=== PATIENT | female | born 1945 | race Caucasian/White ===

== ENCOUNTER 2017-06-09 06:18 | Day surgery (SDC) | payer MEDICARE ==
[2017-06-08 09:06] VITALS: BMI 20.6
[2017-06-09 07:31] LABS: Hematocrit 33.2 % (36.0-47.0); Mean Platelet Volume 6.9 fL (7.4-10.4); Red Blood Cell (RBC) Count 3.51 mill/uL (4.20-5.40); White Blood Cell (WBC) Count 4.4 thou/uL (4.8-10.8)
[2017-06-09] MEDS ORDERED: Propofol 1,000 MG/100 ML VIAL IV ONE (07:33)
[2017-06-09 07:36] LABS: PTT 40.9 SEC (22.9-36.1)
[2017-06-09 07:50] LABS: Anion Gap 13 mmol/L (10-20); BUN (Urea Nitrogen) 17 mg/dL (9.8-20.1); Calc. Creatinine Clearance 39 mL/min (70-130); Calcium 9.5 mg/dL (7.8-10.44); Carbon Dioxide 27 mmol/L (23-31); Chloride 103 mmol/L (98-107); Estimated GFR-MDRD 48
[2017-06-09] MEDS ORDERED: Propofol 200 MG/20 ML VIAL ONE (08:57)
--- NOTE | 2017-06-09 09:24 | OP ---
DATE OF PROCEDURE: 06/09/2017 REFERRING PHYSICIAN: Dr. Yaw Aguilar. Ms. Jimenez is a 72-year-old female with prior history of persistent atrial fibrillation and pulmonar y venous isolation procedure in 04/19/[address] Chavarria. She has been on Xarelto and amiodarone ev er since. She has a recurrent atypical atrial flutter here for cardioversion. She has not interrup abdelrahman her anticoagulation. PROCEDURE: The patient received propofol as per Anesthesia specialist. After adequate level of sed ation achieved, a synchronized 70 joule shock promptly converted the patient back to sinus rhythm. CONCLUSION: Successful cardioversion. PLAN: Continue anticoagulation, amiodarone, routine followup in the office.
== END 2017-06-09 10:57 | disposition home or self-care (01) ==
LOC: CCL 06:18
PROVIDERS: ATTEND Internal Medicine Cardiovascular Disease
DX: I48.4 Atypical atrial flutter (principal); I48.1 Persistent atrial fibrillation; I11.9 Hypertensive heart disease without heart failure; K21.9 Gastro-esophageal reflux disease without esophagitis; M19.90 Unspecified osteoarthritis, unspecified site; Z79.01 Long term (current) use of anticoagulants; Z79.899 Other long term (current) drug therapy; Z91.041 Radiographic dye allergy status; Z90.710 Acquired absence of both cervix and uterus; Z98.890 Other specified postprocedural states; Z87.891 Personal history of nicotine dependence; Z87.01 Personal history of pneumonia (recurrent); Z82.49 Family history of ischemic heart disease and other diseases of the circulatory system
CPT/HCPCS: 80048; 85027; 85610; 85730; 92960; 93005; 93010; J2704

== ENCOUNTER 2018-07-02 18:53 | Inpatient (IN) | payer MEDICARE ==
[2018-07-02] MEDS ORDERED: Midazolam HCl 5 mg/ml Vial ONE (19:22)
[2018-07-02 19:28] LABS: #Basophils 0.1 thou/uL (0.0-0.2); #Eosinphils 0.3 thou/uL (0.0-0.7); #Lymphocytes 2.4 thou/uL (1.20-3.40); #Monocytes 0.7 thou/uL (0.11-0.59); %Eosinophils 3.4 % (0.0-10.0); %Lymphocytes 31.9 % (21.0-51.0); %Monocytes 9.9 % (0.0-10.0); %Neutrophils 53.8 % (42.0-75.0); Hemoglobin 13.6 g/dL (12.0-16.0); Mean Corpuscular HGB CONC 33.3 g/dL (32.0-36.0); Mean Corpuscular Hemoglobin 30.1 pg (27.0-31.0); Mean Corpuscular Volume 90.5 fL (78.0-98.0); Mean Platelet Volume 6.9 fL (7.4-10.4); Platelet Count 321 thou/uL (130-400); RBC Distribution Width 11.4 % (11.5-14.5); White Blood Cell (WBC) Count 7.5 thou/uL (4.8-10.8)
[2018-07-02] MEDS ORDERED: Magnesium 2 GM/50 ML BAG (IN WATER) ONE (19:29)
[2018-07-02] MEDS ORDERED: Amiodarone HCl 150 MG, Admixture Fee 1 EACH in Dextrose 5% in Water 100 ML IVPB SCH (19:30)
[2018-07-02] MEDS ORDERED: Amiodarone HCl 450 MG, Admixture Fee 1 EACH in Dextrose 5% in Water 250 ML IVPB SCH (19:30)
[2018-07-02 19:35] LABS: INR-International Normal Ratio 1.1; PTT 27.4 SEC (22.9-36.1); Prothrombin Time 14.3 SEC (12.0-14.7)
[2018-07-02 19:43] LABS: ALT (SGPT) 13 U/L (8-55); AST (SGOT) 15 U/L (5-34); Albumin 4.2 g/dL (3.4-4.8); Alkaline Phosphatase 27 U/L (40-150); Anion Gap 13 mmol/L (10-20); BUN (Urea Nitrogen) 15 mg/dL (9.8-20.1); Calc. Creatinine Clearance 0 mL/min (70-130); Calcium 8.9 mg/dL (7.8-10.44); Carbon Dioxide 30 mmol/L (23-31); Chloride 102 mmol/L (98-107); Estimated GFR-MDRD 64; Globulin 2.6 g/dL (2.4-3.5); Glucose 101 mg/dL (83-110); Potassium 3.6 mmol/L (3.5-5.1); Protein, Total 6.8 g/dL (6.0-8.3); Sodium 141 mmol/L (136-145)
[2018-07-02 19:52] LABS: Troponin I 0.725 ng/mL (< 0.028)
--- NOTE | 2018-07-02 20:21 | RAD ---
CHEST ONE VIEW: INDICATIONS: History of SVT. COMPARISON: Prior study dated 05/15/2018. FINDINGS: There is stable cardiomegaly and chronic lung changes. No confluent air space opacity or pleural effusion is evident. Pacer pads overly the lower anterior chest wall, l imiting the exam. No acute osseous abnormality is evident. IMPRESSION: Stable cardiomegaly. POS: [facility]
[2018-07-02] MEDS ORDERED: Ondansetron ODT 4 MG TAB SL PRN (22:30)
[2018-07-02] MEDS ORDERED: Acetaminophen 325 MG TAB PO PRN (22:30)
[2018-07-02] MEDS ORDERED: Sodium Chloride 0.9% 1,000 ML IV SCH (22:30)
[2018-07-02] MEDS ORDERED: Ondansetron HCl/PF 4 MG/2 ML Vial IVP PRN (22:30)
[2018-07-02 23:05] VITALS: BMI 22.3
[2018-07-02 23:18] LABS: Troponin I 0.734 ng/mL (< 0.028)
[2018-07-03 01:59] LABS: Critical Call Chem Troponin I RESULT DECREASING; Troponin I 0.682 ng/mL (< 0.028)
[2018-07-03] MEDS ORDERED: Clopidogrel Bisulfate 300 MG TAB PO SCH (03:00)
[2018-07-03] MEDS ORDERED: Enoxaparin Sodium 60 MG/0.6 ML SYRINGE SC SCH (09:00)
[2018-07-03] MEDS: Carvedilol 6.25 MG TAB PO SCH ×2 (09:47→20:38)
[2018-07-03] MEDS: Diltiazem HCl SR 60 mg Capsule PO SCH ×2 (09:48→20:37)
[2018-07-03] MEDS: Clopidogrel Bisulfate 75 MG TAB PO SCH (09:48)
[2018-07-03] MEDS: Aspirin 81 mg Enteric Coated Tablet PO SCH (09:48)
--- NOTE | 2018-07-03 09:49 | HP ---
CHIEF COMPLAINT: Tachycardia and palpitations. HISTORY OF PRESENT ILLNESS: This is a 73-year-old female with past medical history of coronary artery disease, CHF, arrhythmia (atrial fibrillation) status post ablation, presenting with heart rate of 160s. Patient was transferred for evaluation of tachycardia, which started at 1000. Patient reports ablation 3 days ago at [facility] for atrial fibrillation. Patient states that at this time, she is feeling much better and she does not have any symptoms of palpitations in the heart. Patient before the whole event started, she was lying in her recliner and started feeling that her heart rate was racing and she checked her blood pressure and blood pressure was low. Patient stated that she was diaphoretic and she felt "sick to her stomach." Patient then called 911 to have the EMS come and pick her up. Patient states that upon arriving to the ED, her blood pressure that was checked during the time that she was in the ambulance was low. Of note, patient was given adenosine and Cardizem with results and convert from heart rate of 165 , sinus. REVIEW OF SYSTEMS: At this point, patient denies any headaches, nausea, vomiting, chest pain, abdominal pain, back pain. Positive for palpitations otherwise, as documented in the HPI. All other systems were reviewed and are negative. PAST MEDICAL HISTORY: Coronary artery disease, congestive heart failure, atrial fibrillation, hypertension. PAST SURGICAL HISTORY: Status post cardiac ablation, hysterectomy. PSYCHIATRIC HISTORY: No psych history. SOCIAL HISTORY: Patient denies any illicit drug use. Patient denies any smoking history. Patient denies any alcohol use. Patient lives at home with family. FAMILY HISTORY: Reviewed and noncontributory. KNOWN ALLERGIES: IODINATED CONTRAST. CURRENT MEDICATIONS: Patient is pantoprazole, Xarelto 15 mg, Carafate 1 gram, diltiazem 60 mg b.i.d., Lasix 40 mg, potassium chloride 20 mEq orally. PHYSICAL EXAMINATION: VITAL SIGNS: Blood pressure is 103/87, pulse of 145, respiratory rate of 18, temperature of 98.5, O2 sat at 97 on room air. GENERAL: Patient is lying in bed comfortably, does not appear to be in any distress. Patient is speaking in full sentences, alert and oriented x3. HEENT: Normocephalic, atraumatic. Pupils are equally round and react to light. Extraocular movements are intact. No scleral icterus. No JVDs. Trachea is midline. NECK: Supple, full range of motion. Mucous membranes are moist. LUNGS: Clear to auscultation bilaterally. No wheezing, no rales, no rhonchi is appreciated. CARDIAC: Positive S1, S2. Irregularly irregular. No murmurs appreciated. ABDOMEN: Soft, nontender, nondistended. : Patient has a Faria in place, draining yellow urine. EXTREMITIES: 5/5 upper extremity strength, 5/5 lower extremity strength. Patient has good pulses bilaterally at the upper and lower extremities. NEUROLOGIC: Cranial nerves II through XII grossly intact. No neurologic deficits noted. SKIN: Warm, dry, and intact. PSYCH: Normal affect. IMAGING: A 12-lead EKG interpretation shows SVTs with occasional PACs. Chest x -ray negative for any acute cardiopulmonary process. Patient has positive cardiomegaly. ED COURSE: Patient received amiodarone IV, magnesium sulfate. Amiodarone was continued and patient also received normal saline. LABORATORY DATA: Patient WBCs are 7.5, hemoglobin is 13.6, hematocrit is 40.8, platelets 321. PT 14.3, INR is 1.8, PTT is 27.4. Sodium 141, potassium is 3.6 , chloride is 102, carbon dioxide of 30, anion gap of 13, BUN is 15, creatinine is 0.86. Magnesium is 2.0. AST is 15, ALT is 13, alkaline phosphatase is 27. Troponin is 0.725, 0.734, and patient's BNP is 347. TSH is 0.5220 ASSESSMENT AND PLAN: This is a 73-year-old female has been admitted for: 1. Palpitations. At this point, patient has been found to have non-ST elevation myocardial infarction. Patient has two troponins and patient's troponin is 0.725, 0.735 on second set. Patient is not going to be started on aspirin, Plavix, beta bear. We will continue patient on her home dose of diltiazem. We will do Lovenox therapeutic. We have consulted Cardiology, we will follow up with their recommendations. We have ordered for an echo. 2. Coronary artery disease. We will continue to manage the patient. 3. History of hypertension. We will continue patient on blood pressure medications. We will monitor the patient closely. 4. Atrial fibrillation. Patient is going to be started on Lovenox therapeutic. We will hold off patient's home dose of Xarelto at this time. 5. History of congestive heart failure. At this point, we will hold off Lasix. We have Cardiology on case. We will follow up with their recommendations. 6. Deep venous thrombosis and gastrointestinal prophylaxis. MTDD
--- NOTE | 2018-07-03 14:18 | PDOC.PN ---
- Subjective Encounter Start Date: 07/03/18 Encounter Start Time: 14:16 Subjective: feels weak and tired.out of energy.easily winded -: palpitations on and off -: reports as taken off of lasix as an OP.denies CP.no dysuria - Objective Resuscitation Status: Resuscitation Status FULL:Full Resuscitation MAR Reviewed: Yes Vital Signs & Weight: Vital Signs (12 hours) Temp Pulse Resp BP BP Pulse Ox 07/03/18 11:17 69 20 130/60 99 07/03/18 09:47 141/68 H 07/03/18 07:37 98.1 F 80 18 141/68 H 99 07/03/18 03:05 98.4 F 71 12 124/59 L 97 Weight Weight 137 lb I&O: 07/02/18 07/03/18 07/04/18 06:59 06:59 06:59 Intake Total 550 Balance 550 Result Diagrams: 07/02/18 19:20 07/02/18 19:20 Additional Labs: Laboratory Tests 05/15/18 07/02/18 07/02/18 20:55 19:20 22:38 Troponin I 0.015 0.725 H* 0.734 H* 07/03/18 01:23 Troponin I 0.682 H* EKG Reviewed by me: Yes (NSR on tele) Phys Exam - Physical Examination Constitutional: NAD HEENT: PERRLA, moist MMs, sclera anicteric, TM's clear, oral pharynx no lesions , 2+ tonsils Neck: no nodes, no JVD, supple, full ROM Respiratory: no wheezing, no rales, no rhonchi, clear to auscultation bilateral Cardiovascular: RRR, no significant murmur Gastrointestinal: soft, non-tender, no distention, positive bowel sounds Musculoskeletal: no edema, pulses present, edema present Neurological: non-focal, normal sensation, moves all 4 limbs Psychiatric: normal affect, A&O x 3 Skin: no rash Dx/Plan (1) NSTEMI (non-ST elevated myocardial infarction) Code(s): I21.4 - NON-ST ELEVATION (NSTEMI) MYOCARDIAL INFARCTION Status: Acute Comment: Nikko demand ischemia from A-fib w RVR. (2) Atrial fibrillation with RVR Code(s): I48.91 - UNSPECIFIED ATRIAL FIBRILLATION Status: Acute Comment: S/ P Ablation 2017,CV05/30 and ablation 06/29/18.On Xarelto as an OP (3) CKD (chronic kidney disease), stage III Code(s): N18.3 - CHRONIC KIDNEY DISEASE, STAGE 3 (MODERATE) Status: Chronic Comment: stable (4) GERD (gastroesophageal reflux disease) Code(s): K21.9 - GASTRO-ESOPHAGEAL REFLUX DISEASE WITHOUT ESOPHAGITIS Status: Chronic Qualifiers: Esophagitis presence: esophagitis presence not specified Qualified Code(s) : K21.9 - Gastro-esophageal reflux disease without esophagitis (5) Hyperlipidemia Code(s): E78.5 - HYPERLIPIDEMIA, UNSPECIFIED Status: Chronic Qualifiers: Hyperlipidemia type: unspecified Qualified Code(s): E78.5 - Hyperlipidemia , unspecified (6) Hypertension Code(s): I10 - ESSENTIAL (PRIMARY) HYPERTENSION Status: Chronic Qualifiers: Hypertension type: essential hypertension Qualified Code(s): I10 - Essential (primary) hypertension Comment: controlled and at goal (7) Non-ischemic cardiomyopathy Code(s): I42.8 - OTHER CARDIOMYOPATHIES Status: Chronic Comment: EF 30-35% - Plan out of bed/ambulate, DVT proph w/SCDs cont Lovenox BID.Xarelto on hold, -: cardiology and EP consult. -: check UA. pt reports adequate urination for now. -: cont plavix.cont BB &b amiodarone.HR in sinus for now -: repeat ECHO shows improved EF.HD stable.am labs * . Review of Systems - Review of Systems Constitutional: weakness, malaise. negative: fever, chills, sweats, other Respiratory: SOB with Excertion. negative: Cough, Dry, Shortness of Breath, Hemoptysis, Pleuritic Pain, Sputum, Wheezing Cardiovascular: palpitations. negative: chest pain, orthopnea, paroxysmal nocturnal dyspnea, edema, light headedness, other Gastrointestinal: negative: Nausea, Vomiting, Abdominal Pain, Diarrhea, Constipation, Melena, Hematochezia, Other Genitourinary: negative: Dysuria, Frequency, Incontinence, Hematuria, Retention , Other Musculoskeletal: negative: Neck Pain, Shoulder Pain, Arm Pain, Back Pain, Hand Pain, Leg Pain, Foot Pain, Other Skin: negative: Rash, Lesions, Geo, Bruising, Other Neurological: negative: Weakness, Numbness, Incoordination, Change in Speech, Confusion, Seizures, Other - Medications/Allergies Allergies/Adverse Reactions: Allergies Allergy/AdvReac Type Severity Reaction Status Date / Time Iodinated Contrast- Oral and Allergy Severe cardiac Verified 06/29/18 17:32 IV Dye arrest Medications: Current Medications Aspirin (Ecotrin) 81 mg PO DAILY [facility] Last Admin: 07/03/18 09:48 Dose: 81 mg Carvedilol (Coreg) 12.5 mg PO BID [facility] Last Admin: 07/03/18 09:47 Dose: 12.5 mg Clopidogrel Bisulfate (Plavix) 75 mg PO DAILY [facility] Last Admin: 07/03/18 09:48 Dose: 75 mg Diltiazem HCl (Cardizem Sr) 60 mg PO BID [facility] Last Admin: 07/03/18 09:48 Dose: 60 mg Enoxaparin Sodium (Lovenox) 60 mg SC 0900,2100 [facility] Last Admin: 07/03/18 09:47 Dose: 60 mg Sodium Chloride (Flush - Normal Saline) 10 ml IVF Q12HR [facility] Last Admin: 07/03/18 09:47 Dose: 10 ml Sodium Chloride (Flush - Normal Saline) 10 ml IVF PRN PRN PRN Reason: Saline Flush
[2018-07-03] MEDS: Rivaroxaban 10 MG TAB PO SCH (17:29)
[2018-07-03 19:35] LABS: Bilirubin Negative (Negative); Blood, Urine Negative (Negative); Clarity CLEAR (Clear); Glucose, Urine (Dipstick) Negative (Negative); Leukocyte Moderate (Negative); Nitrite Negative (Negative); Protein, Urine (Dipstick) Negative (Neg-Trace); Specific Gravity, Urine 1.017 (1.002-1.036); pH, Urine 6.5 (5.0-9.0)
[2018-07-03 19:38] LABS: Bacteria/HPF Rare-Few HPF (None Seen); Hyaline Casts/LPF 0-3 HYALINE CAST LPF (0-3 Hyaline); RBC/HPF 0-3 HPF (0-3); Squamous Epithelial 0-3 HPF (0-3)
[2018-07-03] MEDS: Amiodarone 200 MG TAB PO SCH (20:38)
[2018-07-04 06:15] LABS: #Basophils 0.1 thou/uL (0.0-0.2); #Eosinphils 0.6 thou/uL (0.0-0.7); #Lymphocytes 1.9 thou/uL (1.20-3.40); #Monocytes 0.5 thou/uL (0.11-0.59); #Neutrophils 3.1 thou/uL (1.40-6.50); %Basophils 0.8 % (0.0-1.0); %Eosinophils 9.5 % (0.0-10.0); %Lymphocytes 31.1 % (21.0-51.0); %Monocytes 8.4 % (0.0-10.0); %Neutrophils 50.2 % (42.0-75.0); Hemoglobin 10.8 g/dL (12.0-16.0); Mean Corpuscular HGB CONC 32.3 g/dL (32.0-36.0); Mean Corpuscular Hemoglobin 29.4 pg (27.0-31.0); Mean Corpuscular Volume 90.8 fL (78.0-98.0); Mean Platelet Volume 6.6 fL (7.4-10.4); Platelet Count 284 thou/uL (130-400); RBC Distribution Width 11.4 % (11.5-14.5); Red Blood Cell (RBC) Count 3.69 mill/uL (4.20-5.40); White Blood Cell (WBC) Count 6.1 thou/uL (4.8-10.8)
[2018-07-04 06:33] LABS: Anion Gap 11 mmol/L (10-20); BUN (Urea Nitrogen) 15 mg/dL (9.8-20.1); Calc. Creatinine Clearance 59 mL/min (70-130); Calcium 8.6 mg/dL (7.8-10.44); Carbon Dioxide 26 mmol/L (23-31); Chloride 105 mmol/L (98-107); Estimated GFR-MDRD 69; Glucose 94 mg/dL (83-110); Potassium 3.9 mmol/L (3.5-5.1); Sodium 138 mmol/L (136-145)
--- NOTE | 2018-07-04 07:19 | CON ---
DATE OF CONSULTATION: 07/03/2018 ELECTROPHYSIOLOGY CONSULTATION REPORT REFERRING PHYSICIAN: Dr. Yaw Aguilar I am seeing Mrs. Jimenez at our [facility] as Electrophysiology automation consultant. Her problems are: 1. Post-ablation atrial tachycardia. A. Good response to amiodarone. 2. History of persistent atrial fibrillation. A. Initial pulmonary venous isolation procedure on 04/19/2017. B. Recurrence of atrial fibrillation/flutter requiring chronic amiodarone therapy. C. Amiodarone stopped in January 2018, but later recurring atrial arrhythmias again noted. D. Afib supression with Tikosyn was attempted in the past, but did not respond well due to QT prolongation. E. Status post redo pulmonary venous isolation procedure on 06/28/[address] Rich. 3. Chronic systolic congestive heart failure with nonischemic cardiomyopathy. A. Left heart catheterization in 07/2010, normal coronary arteries. LVEF 40%. B. 2D echo from 07/2016 with LVEF 45%-50%, MR, left atrial enlargement. C. A 2D echo from 07/03/2018 reveals LVEF of 35%-40%. Left atrium moderately dilated. Severe mitral regurgitation, moderate to severe aortic regurgitation, moderate tricuspid regurgitation. LV dilation is seen. 4. Elevated [id number] score with age, gender, hypertension and CHF. 5. On chronic Xarelto therapy. 6. Risk factors including dyslipidemia and hypertension and smoking. ALLERGIES: ORAL AND IV DYE and IODINE. MEDICATIONS AT HOME: Included Xarelto 50 mg a day, carvedilol 12.5 mg 1 tablet twice a day, diltiazem 60 mg twice a day, pantoprazole 4 mg daily, sucralfate 1 gram q.i.d., potassium chloride 10 mEq daily, furosemide 4 mg daily p.r.n. DATABASE: The EKGs reviewed revealing atrial tachycardia with variable AV conduction on presentation with ventricular rates at 160 beats per minute. Subsequently EKGs reveal continued atrial tachycardia, but eventually reversal to sinus rhythm is noted on telemetry strips, currently maintaining sinus rhythm. The patient had significant palpitation with these episodes. She had no loss of consciousness. No fever, chills, or cough. She has also felt somewhat thick to the stomach and somewhat diaphoretic eventually and all these symptoms resolved with rate control. She did receive adenosine and Cardizem. Currently, she has no PND, orthopnea, lower extremity edema. No fever, chills, or cough. No dizziness anymore. Rest of 12-point system unremarkable. PAST HISTORY: As above. SOCIAL HISTORY: Patient denies smoking, ETOH or drug abuse. Lives at home with family. FAMILY HISTORY: Noncontributory. OBJECTIVE: VITAL SIGNS: Blood pressure is 130/60, heart rate 69, respiratory rate 20, temperature 98.1 degrees Fahrenheit. GENERAL: Alert and oriented woman in no apparent distress. NECK: Supple. Jugular veins not distended. CHEST: Coarse without crackles. CARDIOVASCULAR: Heart sounds are regular to rate and rhythm. No murmur or gallop. ABDOMEN: Benign. Bowel sounds positive. EXTREMITIES: Lower extremities without edema, clubbing or cyanosis. Pulses are adequate. NEUROLOGIC: Patient nonfocal. MUSCULOSKELETAL: No joint swelling or deformities. SKIN: Without rash. EKGs as above. LABORATORY DATA: The sodium is 141, potassium 3.6, BUN is 15, creatinine 0.86. Troponin levels are 0.725, 0.734, and 0.682. BNP still at 347 on presentation. TSH is 0.5 to the lab data. ASSESSMENT AND PLAN: Ms. Jimenez is a pleasant 73-year-old woman with prior history of atrial arrhythmias, atrial fibrillation. She also has nonischemic cardiomyopathy, currently with moderate reduced LV function. She is here with recurrent atrial arrhythmias 3-4 days after her ablation. ASSESSMENT AND PLAN. 1. Currently, her rhythm is normal as well as I suspect this may recur. At this point it would be reasonable to restart p.o. amiodarone reloading. We will continue to monitor her and likely wean her off in about 3 months post- ablation. 2. The [id number] score 5, continues on Xarelto. I would increase the dose to 420 mg, hence today for values, her creatinine clearance is 55 mL per minute. Once that number decreased based on 50, she likely will need to reduce her Xarelto to 50 mg. 3. Status post left atrial ablation procedure. Good recovery without any significant complications so far. 4. Cardiomyopathy, heart failure therapy is recommended including judicious use of diuretics as per Dr. Aguilar. 5. Elevated troponins, likely is none related to marked ischemia, but to the recent ablation. 6. Amiodarone use, warned her about potential long-term side effect. Hence, she responded poorly on Tikosyn, I think that is the only reasonable choice at this time. We will follow with you. MTDD
[2018-07-04] MEDS: Amiodarone 200 MG TAB PO SCH ×3 (09:17→19:59)
[2018-07-04] MEDS: Carvedilol 6.25 MG TAB PO SCH ×2 (09:17→19:59)
[2018-07-04] MEDS: Clopidogrel Bisulfate 75 MG TAB PO SCH (09:17)
[2018-07-04] MEDS: Diltiazem HCl SR 60 mg Capsule PO SCH ×2 (09:17→20:00)
[2018-07-04] MEDS: Aspirin 81 mg Enteric Coated Tablet PO SCH (09:17)
[2018-07-04] MEDS ORDERED: Acetaminophen 500 MG TAB PO PRN (09:18)
[2018-07-04] MEDS ORDERED: Benzonatate 100 MG CAP PO PRN (09:18)
[2018-07-04] MEDS ORDERED: cloNIDine 0.1 MG TAB PO PRN (09:18)
[2018-07-04] MEDS ORDERED: Diabetic Tussin 200 MG/10 ML UDCUP PO PRN (09:18)
[2018-07-04] MEDS ORDERED: Ondansetron HCl/PF 4 MG/2 ML Vial IVP PRN (09:18)
[2018-07-04] MEDS ORDERED: hydrALAZINE 20 MG/ML VIAL SLOW IVP PRN (09:18)
[2018-07-04] MEDS ORDERED: Senokot S 8.6-50 MG TAB PO PRN (09:18)
[2018-07-04] MEDS ORDERED: Bisacodyl 5 MG TAB PO PRN (09:18)
[2018-07-04] MEDS ORDERED: Nitroglycerin 0.4 MG TAB (25 Tab Bottle) SL PRN (09:18)
--- NOTE | 2018-07-04 11:06 | PQF ---
JOSH MENDENHALL RICHA MD [id number] CLINICAL DOCUMENTATION IMPROVEMENT CLARIFICATION FORM: ICD-10 Updated PLEASE DO AN ADDENDUM TO THE PROGRESS NOTE WITH ANY DOCUMENTATION UPDATES OR ADDITIONS AND CARRY THROUGH TO DC SUMMARY. THANK YOU. DATE: 07/04/18 ATTN: DR. HEAD Please exercise your independent, professional judgment in responding to the clarification form. Clinical indicators are provided on the bottom of this form for your review Please check appropriate box(s) to clarify if the following diagnosis has been ruled in or ruled out: NSTEMI____X. (CDI/Coding list diagnosis here) [ ] Ruled in diagnosis [ ] Continue to treat [ X ] Resolved [ ] Ruled out diagnosis [ ] Cannot rule out diagnosis [ ] Other diagnosis [ ] Unable to determine In addition, please specify: Present on Admission (POA): [ X ] Yes [ ] No [ ] Unable to determine For continuity of documentation, please document condition throughout progress notes and discharge summary. Thank You. CLINICAL INDICATORS - SIGNS / SYMPTOMS / LABS NSTEMI H&P 07/03 IM: NSTEMI LIKELY FROM DEMAND ISCHEMIA FROM AFIB RVR TROP 0.725, 0.734, 0.682 PER LABS ON ADMIT 07/03 CARD: ELEVATED TROPONINS, LIKELY IS NONE RELATED TO MARKED ISCHEMIA, BUT TO RECENT ABLATION RISK FACTORS H&P: AFIB RVR, HTN, CKD3 07/03 CARD: CHRONIC SYSTOLIC HF, ICMP S/P ABLATION 06/29 TREATMENTS SERIAL CARDIAC ENZYMES 07/02 ORDERS CARDIOLOGY CONSULT 07/03 ORDERS ECHO 07/03 ORDERS THANK YOU, MINDY (This form is maintained as a part of the permanent medical record) 2014 [employer]. All Rights Reserved Mindy Lane RN, BSN, CCDS [email or web address]
[2018-07-04] MEDS: Sucralfate 1 GM TAB PO SCH ×3 (13:46→20:03)
--- NOTE | 2018-07-04 13:46 | PDOC.CTH ---
Cardiology Progress Note - Subjective EP progress note: Seen and evaluated. No new cardiac concerns or complaints. Doing well today. No heart racing, palpitations, chest pain/pressure, dizziness, or passing out - Objective Vital Signs Temp Pulse Resp BP BP BP Pulse Ox 07/04/18 11:10 70 18 127/59 L 97 07/04/18 09:17 142/71 H 07/04/18 07:15 98.2 F 72 16 142/71 H 100 07/04/18 02:55 98.3 F 65 17 126/59 L 98 Weight 138 lb 11.2 oz 07/03/18 07/04/18 07/05/18 06:59 06:59 06:59 Intake Total 550 1200 Output Total 1050 Balance 550 150 - Physical Examination General/Neuro: alert & oriented x3, NAD Neck: carotid US brisk, no JVD present Lungs: CTA, unlabored respirations Heart: PMI normal, RRR Abdomen: NT/ND, soft - Telemetry Telemetry Rhythm: SR - Labs Result Diagrams: 07/04/18 05:25 07/04/18 05:25 Troponin/CKMB CK-MB (CK-2) 2.0 ng/mL (0-6.6) 07/02/18 19:20 Troponin I 0.682 ng/mL (< 0.028) H* 07/03/18 01:23 - Assessment/Plan 1. Persistent atrial arrhythmias s/p recent redo RFA on 06/28/18 with Al-Ahmad. Now in sinus rhythm but had demonstrated early recurrence. Short term Amiodarone initiated. Continue taper of 200mg TID x 1 week, 200mg BID x 1 week, then 200mg daily thereafter. Hope to wean off 3 monts post ablation. Failed Tikosyn in the past. 2. CHADS2-VASC: 5, on Xarelto. Continue without interruption post ablation 3. Cardiomyopathy, per Dr. Aguilar 4. Elevated troponins, secondary to recent ablation 5. Renal insufficiency. Creat clearance 55mL/min. If </=50, will need to lower Xarelto to 15mg QPM Continue Amiodarone and Xarelto.
[2018-07-04] MEDS ORDERED: Mag-Al Plus 1200 MG/1200 MG/120 MG/30 ML UDCUP PO PRN (15:24)
[2018-07-04] MEDS: Rivaroxaban 10 MG TAB PO SCH (17:55)
--- NOTE | 2018-07-04 23:26 | DIS ---
DATE OF ADMISSION: 07/02/2018 DATE OF DISCHARGE: 07/04/2018 CONDITION AT THE TIME OF DISCHARGE: Stable and improved. PRIMARY CARE PHYSICIAN: Aleshia Rosario M.D. DISCHARGE DIAGNOSES: 1. Non-ST elevation myocardial infarction. 2. Recurrent atrial fibrillation with rapid ventricular response. 3. Chronic kidney disease. 4. Gastroesophageal reflux disease. 5. Dyslipidemia. 6. Hypertension. 7. Nonischemic cardiomyopathy with ejection fraction of 35%-40%. INHOUSE CONSULTATION: Yaw Aguilar M.D. ELECTROPHYSIOLOGY: Antonio Silverio M.D. DISCHARGE MEDICATIONS: Amiodarone dose has been increased to 200 mg t.i.d. for 1 week, then 200 mg p .o. b.i.d. for 1 week, then 200 mg daily; Xarelto dose has been increased from 15 to 20 mg daily. Re sume home medications, Carafate 1 gram q.i.d., Protonix 40 mg daily, potassium chloride 20 mEq daily p.r.n., Lasix 40 mg daily p.r.n., diltiazem 60 mg p.o. b.i.d., and carvedilol 12.5 mg p.o. b.i.d. PROCEDURES DONE IN THE HOSPITAL: Transthoracic echocardiogram which shows EF of 35%-40% with severe mitral regurgitation as well as moderate to severe aortic regurgitation and moderate tricuspid regurg itation. HISTORY OF PRESENTING ILLNESS: Ms. Jimenez is a very pleasant 73-year-old female with known history o f atrial fibrillation, status post cardioversion and ablation as an outpatient who presented to the e mergency room with complaints of tachycardia and palpitations. She had a recent ablation [address] Silverio at [facility]. Upon presentation, she was diaphoretic and at home her blood pre ssure was low. Upon presentation, she was found to have troponin elevation at 0.725 and 0.735 on sec ond set. She was started on aspirin, Plavix, and beta bear by the admitting physician as well as b.i.d. dose of Lovenox and Cardiology was consulted. She was given IV amiodarone and magnesium sulfa te in the emergency room for SVTs and occasional PACs. Please see admission history and physical for further detail. Xarelto was held as Lovenox was started. HOSPITAL COURSE: The patient was seen by Cardiology and Electrophysiology. Dr. Silverio recommended med ical management and her amiodarone dose as well as Xarelto dose was increased. She was taken off of Lovenox. No further ablation was planned inhouse and the patient had no reoccurrence of arrhythmia. She remained in sinus rhythm. She was cleared by Cardiology and Electrophysiology for discharge and was eager to go home. Home health was set up for her. She will follow up with both Dr. Jeff cochran nd Dr. Silverio in the outpatient setting. PHYSICAL EXAMINATION: This morning include: VITAL SIGNS: Temperature 98.2, blood pressure 127/59, saturating 97% on room air, heart rate 70, no acute distress. CHEST: Clear to auscultation. HEART: Rate and rhythm regular. LABORATORY DATA: The troponin started to trend down with repeat troponin of 0.682. BNP 347. TSH nor mal. CBC, serum chemistries unremarkable. Total time spent in discharge of this patient 32 minutes.
[2018-07-05] MEDS: Sucralfate 1 GM TAB PO SCH ×3 (07:58→16:02)
[2018-07-05] MEDS: Clopidogrel Bisulfate 75 MG TAB PO SCH (07:58)
[2018-07-05] MEDS: Carvedilol 6.25 MG TAB PO SCH (07:58)
[2018-07-05] MEDS: Diltiazem HCl SR 60 mg Capsule PO SCH (07:58)
[2018-07-05] MEDS: Amiodarone 200 MG TAB PO SCH ×2 (07:59→15:17)
--- NOTE | 2018-07-05 09:48 | PRG ---
DATE OF SERVICE: 07/05/2018 SUBJECTIVE: Ms. Jimenez seems to be doing well. She was set to discharge yesterday, but developed a discomfort in the abdomen. It is improved today. OBJECTIVE: VITAL SIGNS: Blood pressure 144/65, heart rate 71, respiration is 18, temperature 98.8 degrees Fahrenheit. GENERAL: Alert and oriented woman in no apparent distress. NECK: Supple. Jugular veins not distended. CHEST: Coarse, no crackles. CARDIOVASCULAR: Heart sounds are regular to rate and rhythm. No murmur or gallop. ABDOMEN: Benign. Bowel sounds positive. EXTREMITIES: No edema, clubbing or cyanosis. DATABASE: The telemetry strips reviewed reveals sinus rhythm without significant ST-T changes. LABORATORY DATA: Troponin levels revealed decreasing trend from the and 0.7 and 0.682 consistent with recent ablation procedure related troponin leak. ASSESSMENT AND PLAN: 1. Ms. Jimenez is a pleasant 73-year-old woman with history of recurrent atrial arrhythmias. She underwent redo left atrial ablation pulmonary venous isolation procedure by Dr. Rich last week. She had recurrent atrial tachycardia and was readmitted. That spontaneously terminated, but we are loading her with amiodarone, which she has been able to tolerate in the past. 2. She had a mild troponin elevation without typical angina-like symptoms which was likely related to the ablation procedure last week, not not [place]. 3. Elevated CHADS-VASc score continued on anticoagulation with Xarelto, which has been increased to 20 mg due to good kidney function. 4. On diltiazem and carvedilol. At this point, we will stop diltiazem to allow for amiodarone taper. 5. Routine followup in the office requested in 6 weeks. ALIAD
--- NOTE | 2018-07-05 14:23 | PDOC.PN ---
- Subjective Encounter Start Date: 07/05/18 Encounter Start Time: 14:21 Subjective: still with some RUQ pain .no fever/chills.no N/V -: reports H/O gallstones - Objective Resuscitation Status: Resuscitation Status FULL:Full Resuscitation MAR Reviewed: Yes Vital Signs & Weight: Vital Signs (12 hours) Temp Pulse Resp BP BP Pulse Ox 07/05/18 12:10 99.5 F 68 18 126/59 L 98 07/05/18 07:49 98.8 F 71 18 144/65 H 99 07/05/18 04:00 98 F 66 16 133/62 97 Weight Weight 140 lb 12.8 oz I&O: 07/04/18 07/05/18 07/06/18 06:59 06:59 06:59 Intake Total 1200 300 Output Total 1050 1250 Balance 150 -950 Result Diagrams: 07/04/18 05:25 07/04/18 05:25 Additional Labs: Laboratory Tests 07/02/18 07/02/18 07/03/18 19:20 22:38 01:23 Troponin I 0.725 H* 0.734 H* 0.682 H* Phys Exam - Physical Examination Constitutional: NAD HEENT: PERRLA, moist MMs, sclera anicteric, oral pharynx no lesions Neck: no nodes, no JVD, supple, full ROM Respiratory: no wheezing, no rales, no rhonchi, clear to auscultation bilateral Cardiovascular: RRR, no significant murmur, no rub Gastrointestinal: soft, non-tender, no distention, positive bowel sounds Musculoskeletal: no edema, pulses present Neurological: non-focal, normal sensation, moves all 4 limbs Psychiatric: normal affect, A&O x 3 Skin: no rash, normal turgor, cap refill <2 seconds Dx/Plan (1) NSTEMI (non-ST elevated myocardial infarction) Code(s): I21.4 - NON-ST ELEVATION (NSTEMI) MYOCARDIAL INFARCTION Status: Acute Comment: Likley demand ischemia from A-fib w RVR. and recent ablation. NOT ACS (2) Atrial fibrillation with RVR Code(s): I48.91 - UNSPECIFIED ATRIAL FIBRILLATION Status: Acute Comment: S/ P Ablation 2016,CV05/30 and ablation 06/29/18.On Xarelto as an OP.NSR for now (3) CKD (chronic kidney disease), stage III Code(s): N18.3 - CHRONIC KIDNEY DISEASE, STAGE 3 (MODERATE) Status: Chronic Comment: stable (4) GERD (gastroesophageal reflux disease) Code(s): K21.9 - GASTRO-ESOPHAGEAL REFLUX DISEASE WITHOUT ESOPHAGITIS Status: Chronic Qualifiers: Esophagitis presence: esophagitis presence not specified Qualified Code(s) : K21.9 - Gastro-esophageal reflux disease without esophagitis (5) Hyperlipidemia Code(s): E78.5 - HYPERLIPIDEMIA, UNSPECIFIED Status: Chronic Qualifiers: Hyperlipidemia type: unspecified Qualified Code(s): E78.5 - Hyperlipidemia , unspecified (6) Hypertension Code(s): I10 - ESSENTIAL (PRIMARY) HYPERTENSION Status: Chronic Qualifiers: Hypertension type: essential hypertension Qualified Code(s): I10 - Essential (primary) hypertension Comment: controlled and at goal (7) Non-ischemic cardiomyopathy Code(s): I42.8 - OTHER CARDIOMYOPATHIES Status: Chronic Comment: EF 30-35% - Plan PT/OT, respiratory therapy, incentive spirometry, out of bed/ambulate, DVT proph w/SCDs check RUQ US.if no cholecystitis ,will DC home -: Discharged yesterday but didn't go d/t abd pain -: IF Gallstones,will refer OP for GS. will need cardiology clearance prior -: HD stable O/W. Stop CCB per Dt Nusrat,cont rest as below -: start PATTY-I given low EF,even though no NSTEMI/ACS this time * . Review of Systems - Review of Systems Constitutional: negative: fever, chills, sweats, weakness, malaise, other ENT: negative: Ear Pain, Ear Discharge, Nose Pain, Nose Discharge, Nose Congestion, Mouth Pain, Mouth Swelling, Throat Pain, Throat Swelling, Other Respiratory: negative: Cough, Dry, Shortness of Breath, Hemoptysis, SOB with Excertion, Pleuritic Pain, Sputum, Wheezing Cardiovascular: negative: chest pain, palpitations, orthopnea, paroxysmal nocturnal dyspnea, edema, light headedness, other Gastrointestinal: Abdominal Pain. negative: Nausea, Vomiting, Diarrhea, Constipation, Melena, Hematochezia, Other Genitourinary: negative: Dysuria, Frequency, Incontinence, Hematuria, Retention , Other Musculoskeletal: negative: Neck Pain, Shoulder Pain, Arm Pain, Back Pain, Hand Pain, Leg Pain, Foot Pain, Other Skin: negative: Rash, Lesions, Geo, Bruising, Other Neurological: negative: Weakness, Numbness, Incoordination, Change in Speech, Confusion, Seizures, Other - Medications/Allergies Allergies/Adverse Reactions: Allergies Allergy/AdvReac Type Severity Reaction Status Date / Time Iodinated Contrast- Oral and Allergy Severe cardiac Verified 06/29/18 17:32 IV Dye arrest Medications: Current Medications Acetaminophen (Tylenol) 1,000 mg PO Q6H PRN PRN Reason: Mild Pain (1-3) Al Hydroxide/Mg Hydroxide (Maalox Plus) 30 ml PO Q6H PRN PRN Reason: Heartburn or Indigestion Last Admin: 07/04/18 16:10 Dose: 30 ml Amiodarone HCl (Cordarone) 200 mg PO TID [facility] Last Admin: 07/05/18 07:59 Dose: 200 mg Benzonatate (Tessalon) 100 mg PO Q6H PRN PRN Reason: Cough Bisacodyl (Dulcolax) 10 mg PO DAILYPRN PRN PRN Reason: Constipation Last Admin: 07/05/18 10:30 Dose: 10 mg Carvedilol (Coreg) 12.5 mg PO BID [facility] Last Admin: 07/05/18 07:58 Dose: 12.5 mg Clonidine (Catapres) 0.1 mg PO Q4H PRN PRN Reason: SBP > 160____ Clopidogrel Bisulfate (Plavix) 75 mg PO DAILY [facility] Last Admin: 07/05/18 07:58 Dose: 75 mg Guaifenesin (Robitussin Sf) 200 mg PO Q4H PRN PRN Reason: Cough Hydralazine HCl (Apresoline) 10 mg SLOW IVP Q4H PRN PRN Reason: SBP > 180 and HR < 70 Nitroglycerin (Nitrostat) 0.4 mg SL Q5MIN PRN PRN Reason: Chest Pain Ondansetron HCl (Zofran) 4 mg IVP Q6H PRN PRN Reason: Nausea/Vomiting Pantoprazole Sodium (Protonix) 40 mg PO DAILY [facility] Rivaroxaban (Xarelto) 20 mg PO 1800 [facility] Last Admin: 07/04/18 17:55 Dose: 20 mg Senna/Docusate Sodium (Senokot S) 2 tab PO BID PRN PRN Reason: Constipation Sodium Chloride (Flush - Normal Saline) 10 ml IVF Q12HR [facility] Last Admin: 07/05/18 07:59 Dose: 10 ml Sodium Chloride (Flush - Normal Saline) 10 ml IVF PRN PRN PRN Reason: Saline Flush Sucralfate (Carafate) 1 gm PO QID [facility] Last Admin: 07/05/18 13:29 Dose: Not Given
[2018-07-05] MEDS ORDERED: Lisinopril 2.5 MG TAB PO SCH (15:15)
[2018-07-05 15:47] VITALS: BP 158/70; TEMP 98.2
--- NOTE | 2018-07-05 17:10 | ULT ---
RIGHT UPPER QUADRANT ULTRASOUND 07/05/18 HISTORY: 73-year-old female with history of pain with history of gallstones and questionable infection. Coarse increased liver echogenicity evidence for fatty infiltration are nonspecific hepatocellular di sease. The gallbladder demonstrates multiple mobile including some very large gallstones. There does appear to be some gallbladder wall thickening as well as some sludge within the gallbladder. Common b ile duct is 0.7 cm. The visualized pancreas and right kidney are unremarkable. IMPRESSION: Coarse liver echotexture evidence for nonspecific hepatic parenchymal process. Multiple mobile gallst ones as well as sludge with some gallbladder wall thickening. If there is clinical concern for acute cholecystitis in addition to cholelithiasis, consider followup nuclear medicine hepatobiliary scan. 0 .7 cm common bile duct. POS: [facility]
[2018-07-05] MEDS: Rivaroxaban 10 MG TAB PO SCH (17:43)
[2018-07-06] MEDS ORDERED: Lisinopril 2.5 MG TAB PO SCH (09:00)
== END 2018-07-05 18:33 | disposition home health service (06) | DRG 281 ==
LOC: ERS 18:53 → 2NO 21:30
PROVIDERS: ADMIT Internal Medicine; ATTEND Internal Medicine
DX: I21.A1 Myocardial infarction type 2 (principal); I42.9 Cardiomyopathy, unspecified; I13.0 Hypertensive heart and chronic kidney disease with heart failure and stage 1 through stage 4 chronic kidney disease, or unspecified chronic kidney disease; I48.1 Persistent atrial fibrillation; I48.92 Unspecified atrial flutter; I50.22 Chronic systolic (congestive) heart failure; I47.1 Supraventricular tachycardia; Z79.01 Long term (current) use of anticoagulants; N18.3 Chronic kidney disease, stage 3 (moderate); K21.9 Gastro-esophageal reflux disease without esophagitis; E78.5 Hyperlipidemia, unspecified; Z91.81 History of falling; I25.119 Atherosclerotic heart disease of native coronary artery with unspecified angina pectoris; I08.3 Combined rheumatic disorders of mitral, aortic and tricuspid valves
CPT/HCPCS: 36415; 71045; 76705; 76942; 80048; 80053; 81003; 81015; 82553; 83735; 83880; 84443; 84484; 85025; 85027; 85347; 85610; 85730; 90471; 90662; 93005; 93010; 93306; 93613; 93623; 93656; 93662; 96365; 96367; 96374; 96376; C1731; C1759; C1769; G0008; G0378; J0282; J1644; J1650; J2001; J2250; J2370; J2405; J2704; J2720; J3010; J7070; J7506

== ENCOUNTER 2018-08-05 13:26 | Observation (INO) | payer MEDICARE ==
[2018-08-05 13:59] LABS: #Basophils 0.1 thou/uL (0.0-0.2); #Eosinphils 0.4 thou/uL (0.0-0.7); #Lymphocytes 1.6 thou/uL (1.20-3.40); #Monocytes 0.5 thou/uL (0.11-0.59); #Neutrophils 3.6 thou/uL (1.40-6.50); %Basophils 1.3 % (0.0-1.0); %Monocytes 7.6 % (0.0-10.0); %Neutrophils 59.1 % (42.0-75.0); Mean Corpuscular HGB CONC 33.5 g/dL (32.0-36.0); Mean Corpuscular Hemoglobin 30.4 pg (27.0-31.0); Mean Corpuscular Volume 90.9 fL (78.0-98.0); Mean Platelet Volume 6.9 fL (7.4-10.4); Platelet Count 315 thou/uL (130-400); RBC Distribution Width 12.1 % (11.5-14.5); Red Blood Cell (RBC) Count 3.94 mill/uL (4.20-5.40); White Blood Cell (WBC) Count 6.1 thou/uL (4.8-10.8)
[2018-08-05 14:10] LABS: PTT 29.8 SEC (22.9-36.1); Prothrombin Time 13.5 SEC (12.0-14.7)
[2018-08-05 14:20] LABS: ALT (SGPT) 11 U/L (8-55); AST (SGOT) 15 U/L (5-34); Albumin 3.9 g/dL (3.4-4.8); Alkaline Phosphatase 31 U/L (40-150); Anion Gap 14 mmol/L (10-20); BUN (Urea Nitrogen) 12 mg/dL (9.8-20.1); Bilirubin, Total 0.7 mg/dL (0.2-1.2); CK (CPK) 92 U/L (29-168); Calc. Creatinine Clearance 0 mL/min (70-130); Calcium 9.2 mg/dL (7.8-10.44); Carbon Dioxide 25 mmol/L (23-31); Chloride 106 mmol/L (98-107); Estimated GFR-MDRD 58; Globulin 2.8 g/dL (2.4-3.5); Glucose 107 mg/dL (83-110); Potassium 4.3 mmol/L (3.5-5.1); Protein, Total 6.7 g/dL (6.0-8.3); Sodium 141 mmol/L (136-145)
[2018-08-05 14:24] LABS: CKMB 1.6 ng/mL (0-6.6); Troponin I Less than 0.010 ng/mL (< 0.028)
[2018-08-05] MEDS ORDERED: Metoprolol Tartrate 5 MG/5 ML VIAL ONE (14:47)
--- NOTE | 2018-08-05 16:05 | RAD ---
CHEST 1 VIEW: HISTORY: Chest pain. COMPARISON: Radiograph 07/01/2018. FINDINGS: There is a calcified granuloma right upper lobe. Heart size is enlarged. No focal confluent airspac e consolidation, pneumothorax, or effusion. There is interposition of bowel in the left hemidiaphrag m and spleen. IMPRESSION: Chronic changes. No acute intrathoracic abnormality. POS: [facility]
--- NOTE | 2018-08-05 16:07 | HP ---
PRIMARY CARE PHYSICIAN: Dr. Aleshia Rosario. REASON FOR ADMISSION: Atrial fibrillation with rapid ventricular response. HISTORY OF PRESENT ILLNESS: A 73-year-old female who has recurrent atrial fibrillation. She require d ablation on 06/29/2018 and subsequently within 3 days, she converted back to atrial fibrillation ag ain. She also had a 1 time ablation in [place]. Today, patient was feeling palpitation, dizziness wh en she was washing dish and that was not stopping. The patient is taking amiodarone 200 mg twice ayse ly. The patient was feeling weak and dizzy and that is why she decided to come to the emergency room for evaluation. Patient is taking Xarelto for chronic anticoagulation. When she came to the emergency room, her hear t rate was running 130s and 140s irregularly. She was given metoprolol 5 mg IV push, still her heart rate was running fast and that is why we decided to keep this patient in hospital. Patient denies any orthopnea, PND or leg swelling. She does report vague chest discomfort, palpitati on and dizziness. She denies any UTI symptoms. She denies any constipation, diarrhea, melena or hem atochezia. REVIEW OF SYSTEMS: The following complete review of systems was negative, unless otherwise mentioned in the HPI or below: Constitutional: Weight loss or gain, ability to conduct usual activities. Sk in: Rash, itching. Eyes: Double vision, pain. ENT/Mouth: Nose bleeding, neck stiffness, pain, te nderness. Cardiovascular: Palpitations, dyspnea on exertion, orthopnea. Respiratory: Shortness of breath, wheezing, cough, hemoptysis, fever or night sweats. Gastrointestinal: Poor appetite, abdom inal pain, heartburn, nausea, vomiting, constipation, or diarrhea. Genitourinary: Urgency, frequenc y, dysuria, nocturia. Musculoskeletal: Pain, swelling. Neurologic/Psychiatric: Anxiety, depressio n. Allergy/Immunologic: Skin rash, bleeding tendency. Please see my HPI for pertinent positive and negative. All other review of system reviewed and negat ben except as mentioned in the HPI. PAST MEDICAL HISTORY: Recurrent atrial fibrillation; nonischemic cardiomyopathy with EF 35%-40%; his tory of SVT, required ablation; coronary artery disease; hypertension; gastroesophageal reflux diseas e; chronic systolic heart failure. PAST SURGICAL HISTORY: Hysterectomy, cardiac ablation x2. PAST PSYCHIATRIC HISTORY: Reviewed and negative. SOCIAL HISTORY: The patient lives at home with family. No history of tobacco, alcohol or illicit dr ug abuse. FAMILY HISTORY: No strong family history of premature coronary artery disease, stroke or cancer. ALLERGIES: Patient is allergic to IODINATED CONTRAST MEDIA. EMERGENCY ROOM COURSE: Patient is given metoprolol 5 mg. Subsequently, Cardizem 10 mg was ordered. CURRENT HOME MEDICATIONS: Protonix 40 mg p.o. daily, Xarelto 20 mg daily, lisinopril 2.5 mg p.o. ayse ly, amiodarone 200 mg p.o. t.i.d., Lasix 40 mg daily p.r.n., potassium chloride 20 mEq p.o. daily p.r .n., Coreg 12.5 mg twice daily. PHYSICAL EXAMINATION: VITAL SIGNS: Currently, blood pressure 129/109, pulse of 131 and irregular, respiratory rate 20, tem perature 98.0, saturation 99% on room air, weight 61.2 kilograms. GENERAL: The patient is currently alert, awake, no obvious acute distress. HEAD: Normocephalic, atraumatic. EYES: Pupils round, reactive to light. Extraocular muscle intact. ENT: Oropharynx within normal limits. Moist mucous membranes. No oral lesion, no pharyngeal erythe ma, no exudate. NECK: Supple, no JVD, no thyromegaly, no carotid bruit. LUNGS: Clear to auscultation without any rhonchi or rales. CARDIAC: S1, S2 irregularly irregular. Systolic murmur noted at the parasternal as well as apex and left lower sternal border. ABDOMEN: Soft and benign without any tenderness. EXTREMITIES: No edema. Good distal pulsation. NEUROLOGIC: Nonfocal examination. The patient moves all 4 limbs. Plantar bilateral flexor. PSYCHIATRIC: Normal affect. SIGNIFICANT LABORATORY DATA: CBC: WBC 6.1, hemoglobin 12.0, platelet 315. INR 1.0. BMP shows sodi um 141, potassium 4.3, chloride 106, carbon dioxide 25, BUN 12, creatinine 0.94, glucose 107, calcium 9.2. LFT: AST 15, ALT 11, alkaline phosphatase is 31, albumin 3.9, CK 92, CK-MB 1.6, troponin I le ss than 0.010. EKG showing atrial fibrillation with RVR. Chest x-ray based on my review, no acute cardiopulmonary p rocess. ASSESSMENT AND PLAN/IMPRESSION: 1. Atrial fibrillation with rapid ventricular response, recurrent and paroxysmal. 2. Nonischemic cardiomyopathy with EF 35%-40%. 3. Moderate tricuspid regurgitation based on previous echocardiography. 4. Severe aortic regurgitation based on previous echocardiography. 5. Severe mitral regurgitation based on previous echocardiography. 6. Hypertension. 7. Dyslipidemia. 8. Gastroesophageal reflux disease. 9. Chronic kidney disease stage 3. PLAN: 1. Observation to telemetry floor. Cardiology consultation. Serial cardiac enzymes x3. We will re sume selected home medications. We will change amiodarone to 200 mg t.i.d. We will continue her cathryn e medication and further decision will defer to Cardiology. 2. Deep venous thrombosis prophylaxis. Patient is already on Xarelto therapy. 3. Gastrointestinal prophylaxis. Protonix 40 mg p.o. daily. CODE STATUS: The patient is FULL CODE. Patient does not have any surrogate decision maker. Disposition plan based on clinical course, likely 24 hours. Plan of care discussed with the patient in detail.
[2018-08-05] MEDS ORDERED: Bisacodyl 5 MG TAB PO PRN (17:37)
[2018-08-05] MEDS ORDERED: HYDROcodone/Acetaminophen 5/325 mg Tablet PO PRN (17:37)
[2018-08-05] MEDS ORDERED: Senokot S 8.6-50 MG TAB PO PRN (17:37)
[2018-08-05] MEDS ORDERED: Calcium Carbonate 500 MG ChewTAB PO PRN (17:37)
[2018-08-05] MEDS ORDERED: Zolpidem Tartrate 5 MG TAB PO PRN (17:37)
[2018-08-05] MEDS ORDERED: Acetaminophen 325 MG TAB PO PRN (17:37)
[2018-08-05] MEDS ORDERED: Bisacodyl 10 MG SUPP PR PRN (17:37)
[2018-08-05] MEDS ORDERED: Eucerin (Mineral Oil/Petrolatum,White) 30 gm Jar TOP PRN (17:37)
[2018-08-05] MEDS ORDERED: Ondansetron ODT 4 MG TAB PO PRN (17:37)
[2018-08-05] MEDS ORDERED: Sodium Chloride 0.65% Nasal 44 ML BOT EA NARE PRN (17:37)
[2018-08-05] MEDS ORDERED: Loratadine 10 MG TAB PO PRN (17:37)
[2018-08-05] MEDS ORDERED: Loperamide HCl 2 MG CAP PO PRN (17:37)
[2018-08-05] MEDS ORDERED: Diabetic Tussin 200 MG/10 ML UDCUP PO PRN (17:37)
[2018-08-05] MEDS ORDERED: Ondansetron PF 4 MG/2 ML Vial IVP PRN (17:37)
[2018-08-05] MEDS ORDERED: Artificial Tears 18 DROP/0.9 ML EA EYE PRN (17:37)
[2018-08-05] MEDS ORDERED: hydrALAZINE 20 MG/ML VIAL SLOW IVP PRN (17:37)
[2018-08-05 18:01] VITALS: BMI 22.6
[2018-08-05 18:15] LABS: Troponin I Less than 0.010 ng/mL (< 0.028)
[2018-08-05] MEDS: Amiodarone 200 MG TAB PO SCH (19:47)
[2018-08-05] MEDS: Carvedilol 25 MG TAB PO SCH (19:48)
[2018-08-05] MEDS ORDERED: Rivaroxaban 10 MG TAB PO SCH (21:00)
[2018-08-05 21:07] LABS: Troponin I 0.017 ng/mL (< 0.028)
[2018-08-05] MEDS ORDERED: Diltiazem 125 MG in Sodium Chloride 0.9% 100 ML IVPB PRN (22:03)
[2018-08-06] MEDS ORDERED: Digoxin 0.5 MG/2 ML AMP SLOW IVP SCH (02:00)
[2018-08-06 07:34] LABS: #Basophils 0.1 thou/uL (0.0-0.2); #Eosinphils 0.3 thou/uL (0.0-0.7); #Lymphocytes 1.2 thou/uL (1.20-3.40); #Monocytes 0.4 thou/uL (0.11-0.59); #Neutrophils 2.5 thou/uL (1.40-6.50); %Basophils 1.3 % (0.0-1.0); %Eosinophils 6.7 % (0.0-10.0); %Lymphocytes 27.8 % (21.0-51.0); %Monocytes 8.6 % (0.0-10.0); %Neutrophils 55.6 % (42.0-75.0); Hemoglobin 11.7 g/dL (12.0-16.0); Mean Corpuscular HGB CONC 32.8 g/dL (32.0-36.0); Mean Corpuscular Hemoglobin 29.9 pg (27.0-31.0); Mean Corpuscular Volume 91.3 fL (78.0-98.0); Mean Platelet Volume 7.2 fL (7.4-10.4); Platelet Count 308 thou/uL (130-400); RBC Distribution Width 12.1 % (11.5-14.5); White Blood Cell (WBC) Count 4.4 thou/uL (4.8-10.8)
[2018-08-06 08:06] LABS: Anion Gap 9 mmol/L (10-20); BUN (Urea Nitrogen) 14 mg/dL (9.8-20.1); Calc. Creatinine Clearance 52 mL/min (70-130); Calcium 8.9 mg/dL (7.8-10.44); Carbon Dioxide 30 mmol/L (23-31); Chloride 104 mmol/L (98-107); Estimated GFR-MDRD 60; Glucose 102 mg/dL (83-110); Potassium 4.3 mmol/L (3.5-5.1); Sodium 139 mmol/L (136-145)
[2018-08-06] MEDS: Amiodarone 200 MG TAB PO SCH ×2 (08:56→15:25)
[2018-08-06] MEDS: Carvedilol 25 MG TAB PO SCH (08:56)
[2018-08-06] MEDS ORDERED: Rivaroxaban 10 MG TAB PO SCH (09:00)
[2018-08-06] MEDS ORDERED: Lisinopril 2.5 MG TAB PO SCH (09:00)
--- NOTE | 2018-08-06 09:56 | PDOC.PN ---
- Subjective Encounter Start Date: 08/06/18 Encounter Start Time: 07:30 -: old records requested/rev Patient seen and examined. No new complaints. No overnight events cardizem drip was started last night for afib with rvr - Objective Resuscitation Status: Resuscitation Status FULL:Full Resuscitation MAR Reviewed: Yes Vital Signs & Weight: Vital Signs (12 hours) Temp Pulse Resp BP BP Pulse Ox 08/06/18 08:56 76 08/06/18 07:57 98.4 F 76 16 119/61 96 08/06/18 06:03 75 131/61 08/06/18 05:00 98.4 F 78 16 115/56 L 97 08/06/18 04:13 74 08/06/18 04:05 75 107/53 L 08/06/18 03:01 75 107/53 L 08/06/18 02:30 74 99/55 L 08/06/18 01:58 74 08/06/18 01:55 130 H 101/65 08/06/18 01:40 129 H 104/63 08/06/18 01:25 130 H 98/58 L 08/06/18 01:10 127 H 97/55 L 08/06/18 00:55 130 H 100/58 L 08/06/18 00:40 132 H 18 109/70 119/58 L 95 08/05/18 22:06 62 110/58 L Weight Weight 136 lb 8 oz I&O: 08/05/18 08/06/18 08/07/18 06:59 06:59 06:59 Intake Total 627 Output Total 650 Balance -23 Result Diagrams: 08/06/18 06:31 08/06/18 06:31 EKG Reviewed by me: Yes (afib) Phys Exam - Physical Examination Constitutional: NAD HEENT: PERRLA, moist MMs, sclera anicteric Neck: no JVD, supple Respiratory: no wheezing, no rales, no rhonchi Cardiovascular: irregular SM+ Gastrointestinal: soft, non-tender, no distention, positive bowel sounds Musculoskeletal: no edema, pulses present Neurological: non-focal, normal sensation, moves all 4 limbs Lymphatic: no nodes Psychiatric: normal affect, A&O x 3 Skin: no rash, normal turgor Dx/Plan (1) Atrial fibrillation with RVR Code(s): I48.91 - UNSPECIFIED ATRIAL FIBRILLATION Status: Acute Comment: (2) CKD (chronic kidney disease), stage III Code(s): N18.3 - CHRONIC KIDNEY DISEASE, STAGE 3 (MODERATE) Status: Chronic Comment: stable (3) GERD (gastroesophageal reflux disease) Code(s): K21.9 - GASTRO-ESOPHAGEAL REFLUX DISEASE WITHOUT ESOPHAGITIS Status: Chronic Qualifiers: (4) Hyperlipidemia Code(s): E78.5 - HYPERLIPIDEMIA, UNSPECIFIED Status: Chronic Qualifiers: (5) Hypertension Code(s): I10 - ESSENTIAL (PRIMARY) HYPERTENSION Status: Chronic Qualifiers: Comment: controlled and at goal (6) Moderate tricuspid regurgitation by prior echocardiogram Code(s): I07.1 - RHEUMATIC TRICUSPID INSUFFICIENCY Status: Chronic (7) Non-ischemic cardiomyopathy Code(s): I42.8 - OTHER CARDIOMYOPATHIES Status: Chronic Comment: EF 30-35% (8) Severe aortic regurgitation by prior echocardiogram Code(s): I35.1 - NONRHEUMATIC AORTIC (VALVE) INSUFFICIENCY Status: Chronic (9) Severe mitral regurgitation by prior echocardiogram Code(s): I34.0 - NONRHEUMATIC MITRAL (VALVE) INSUFFICIENCY Status: Chronic - Plan cont current plan of care * cardizem drip for rate control * cardiology on case * medication reviewed as below * symptomatic treatment * will monitor * discharge decision pending cardio recommendation. Review of Systems - Review of Systems ENT: negative: Ear Pain, Ear Discharge, Nose Pain, Nose Discharge, Nose Congestion, Mouth Pain, Mouth Swelling, Throat Pain, Throat Swelling, Other Respiratory: negative: Cough, Dry, Shortness of Breath, Hemoptysis, SOB with Excertion, Pleuritic Pain, Sputum, Wheezing Cardiovascular: negative: chest pain, palpitations, orthopnea, paroxysmal nocturnal dyspnea, edema, light headedness, other Gastrointestinal: negative: Nausea, Vomiting, Abdominal Pain, Diarrhea, Constipation, Melena, Hematochezia, Other Genitourinary: negative: Dysuria, Frequency, Incontinence, Hematuria, Retention , Other Musculoskeletal: negative: Neck Pain, Shoulder Pain, Arm Pain, Back Pain, Hand Pain, Leg Pain, Foot Pain, Other Skin: negative: Rash, Lesions, Geo, Bruising, Other - Medications/Allergies Allergies/Adverse Reactions: Allergies Allergy/AdvReac Type Severity Reaction Status Date / Time Iodinated Contrast- Oral and Allergy Severe cardiac Verified 08/05/18 17:55 IV Dye arrest Medications: Current Medications Acetaminophen (Tylenol) 650 mg PO Q4H PRN PRN Reason: Headache/Fever/Mild Pain (1-3) Hydrocodone Bitart/Acetaminophen ([place] 5/325) 1 tab PO Q4H PRN PRN Reason: Moderate Pain (4-6) Amiodarone HCl (Cordarone) 200 mg PO TID [facility] Stop: 08/11/18 21:01 Last Admin: 08/06/18 08:56 Dose: 200 mg Amiodarone HCl (Cordarone) 200 mg PO BID [facility] Stop: 08/18/18 09:01 Amiodarone HCl (Cordarone) 200 mg PO QAM [facility] Artificial Tears (Tears Naturale) 2 drop EA EYE PRN PRN PRN Reason: Dry Eyes Bisacodyl (Dulcolax) 10 mg PO DAILYPRN PRN PRN Reason: Constipation Bisacodyl (Dulcolax) 10 mg NC DAILYPRN PRN PRN Reason: Constipation Calcium Carbonate (Tums) 1,000 mg PO Q4H PRN PRN Reason: Heartburn or Indigestion Carvedilol (Coreg) 12.5 mg PO BID [facility] Last Admin: 08/06/18 08:56 Dose: 12.5 mg Guaifenesin (Robitussin Sf) 200 mg PO Q4H PRN PRN Reason: Cough Hydralazine HCl (Apresoline) 10 mg SLOW IVP Q4H PRN PRN Reason: SBP > 180 and HR < 70 Diltiazem HCl 125 mg/ Sodium (Chloride) 125 mls @ 5 mls/hr IVPB INF PRN PRN Reason: IF SUSTAINED HR > 110 Last Admin: 08/06/18 00:39 Dose: 125 mls Lisinopril (Zestril) 2.5 mg PO DAILY [facility] Last Admin: 08/06/18 08:56 Dose: 2.5 mg Loperamide HCl (Imodium) 2 mg PO PRN PRN PRN Reason: Diarrhea/Loose Stools Loratadine (Claritin) 10 mg PO DAILYPRN PRN PRN Reason: Sinus Symptoms Mineral Oil/White Petrolatum (Eucerin Cream) 0 gm TOP BIDPRN PRN PRN Reason: Dry Skin Ondansetron HCl (Zofran Odt) 4 mg PO Q6H PRN PRN Reason: Nausea/Vomiting Ondansetron HCl (Zofran) 4 mg IVP Q6H PRN PRN Reason: Nausea/Vomiting Pantoprazole Sodium (Protonix) 40 mg PO DAILY [facility] Last Admin: 08/06/18 08:55 Dose: 40 mg Rivaroxaban (Xarelto) 20 mg PO HS [facility] Last Admin: 08/05/18 20:58 Dose: 20 mg Senna/Docusate Sodium (Senokot S) 2 tab PO BID PRN PRN Reason: Constipation Sodium Chloride ([place] Nasal [place] 0.65%) 0 ml EA NARE QIDPRN PRN PRN Reason: Nasal Congestion Zolpidem Tartrate (Ambien) 5 mg PO HSPRN PRN PRN Reason: Insomnia
--- NOTE | 2018-08-06 14:49 | PDOC.CTH ---
Cardiology Progress Note - Objective Vital Signs Temp Pulse Resp BP BP Pulse Ox 08/06/18 11:35 98.5 F 76 16 124/60 97 08/06/18 08:56 76 08/06/18 07:57 98.4 F 76 16 119/61 96 08/06/18 06:03 75 131/61 08/06/18 05:00 98.4 F 78 16 115/56 L 97 08/06/18 04:13 74 08/06/18 04:05 75 107/53 L 08/06/18 03:01 75 107/53 L Weight 136 lb 8 oz 08/05/18 08/06/18 08/07/18 06:59 06:59 06:59 Intake Total 627 Output Total 650 Balance -23 - Labs Result Diagrams: 08/06/18 06:31 08/06/18 06:31 Troponin/CKMB CK-MB (CK-2) 1.6 ng/mL (0-6.6) 08/05/18 13:42 Troponin I 0.017 ng/mL (< 0.028) 08/05/18 20:31 - Assessment/Plan <Addendum> * Will change Diltizem to PO 120mg qd. (Ok by pharmacy with Xarelto as long as the pt maintains renal function) * As long as the pt stays in SR with PO Cardizem, the pt can be d/regina home and f /u with EP clinic within a few days. The pt will f/u with Dr Sharma's office within 2 wks.
[2018-08-06 16:13] VITALS: BP 131/60; TEMP 98.7
--- NOTE | 2018-08-07 07:38 | ADD-CON ---
ADDENDUM DATE OF CONSULTATION: 08/06/2018 DATE OF ADMISSION: 08/05/2018 CARDIOLOGY CONSULT NOTE Please refer to the notes already dictated by my nurse practitioner Michelle Lott. INDICATION FOR CONSULTATION: A 73-year-old female with intermittent atrial fibrillation, who has und ergone ablation of atrial fibrillation in the past and also cardioversion recently. She presented ag ain today after she noticed she was having palpitations and had a rapid ventricular response with atr ial fibrillation. She was given IV diltiazem in the emergency room and was converted back to normal sinus rhythm and has remained in sinus rhythm since that time. She denied any chest pain or signific ant shortness of breath. She does still have some dizziness when she has atrial fibrillation. Her p ast medical history is significant for coronary artery disease, congestive heart failure, atrial fibr illation, hypertension. She has had a hysterectomy, x2. She has had 10 children in the [facility]. She is retired, previously she worked as a sitter. She has had no complication, otherwise, from a cardiac standpoint. PAST MEDICAL HISTORY, SOCIAL HISTORY, FAMILY HISTORY, REVIEW OF SYSTEMS, ALLERGIES: Please refer to the notes already dictated as well as for the medication list. PHYSICAL EXAMINATION: GENERAL: Reveals an elderly female who is in no acute distress. She is alert and oriented, very ple asant lady. She has no complaints at this time. VITAL SIGNS: Her blood pressure is 131/60, heart rate is 74 and regular. She is afebrile, respirato ry rate is 16, O2 saturation 97%. HEENT: Shows head to be normocephalic and atraumatic. Carotid pulses are present. There were no br uits. CHEST: Clear to auscultation without rales, rhonchi or wheezing. CARDIOVASCULAR: Reveals a regular rate and rhythm with occasional ectopy. There were no gross murmu rs, heaves, thrills, bruits or rubs noted. ABDOMEN: Soft and nontender with positive bowel sounds. EXTREMITIES: Show no clubbing, cyanosis or edema. NEUROLOGIC: The patient appears to be fully intact. SKIN: Warm and dry. IMAGING DATA: Her EKG shows a sinus rhythm with occasional PACs. Earlier she did have a rapid heart rate which appear to be atrial fibrillation or possibly flutter. At this time, the heart rate is under much better control and she is having no symptoms and she is re deep believe ready for discharge. We will send her home with p.o. diltiazem. She will follow up with icer machine operator in the next couple of weeks. She will also see Dr. Aguilar in the next 2-4 we eks. IMPRESSION: 1. Recurrence of atrial fibrillation with rapid ventricular response, which has now converted back t o sinus rhythm. She remained stable. 2. History of hypertension. This is also under good control. 3. History of aortic valve regurgitation. This will be dealt with by Dr. Aguilar when he visits w ith the patient on the next followup. She also has a history of severe mitral valve regurgitation. This may need to have further intervention, if she continued to have episodes of atrial fibrillation. 4. History of nonischemic cardiomyopathy. This is stable at this time. 5. History of chronic kidney disease, which has remained stable for the patient. Her last creatinin e was 0.91. Her cardiac enzymes are negative for myocardial infarction. Overall, cardiac status is stable and e is ready for discharge.
--- NOTE | 2018-08-07 08:05 | DIS ---
PRIMARY CARE PHYSICIAN: Dr. Aleshia Rosario DATE OF ADMISSION: 08/05/2018 DATE OF DISCHARGE: 08/06/2018 DISCHARGE DISPOSITION: Home. PRIMARY DISCHARGE DIAGNOSES: Paroxysmal atrial fibrillation with rapid ventricular response. SECONDARY DISCHARGE DIAGNOSES: Chronic kidney disease stage 3, gastroesophageal reflux disease, dysl ipidemia, hypertension, moderate tricuspid regurgitation, nonischemic cardiomyopathy, severe aortic r egurgitation, severe mitral regurgitation, chronic systolic heart failure, stage C. PRIMARY PROCEDURE/OPERATION: None. RADIOLOGICAL INVESTIGATION: Chest x-ray normal. SIGNIFICANT LABORATORY DATA: Hemoglobin 11.7. INR 1.0. Creatinine 0.91. Cardiac enzymes negative. Liver function tests and BMP normal. DISCHARGE MEDICATIONS: Coreg 12.5 mg p.o. b.i.d., Lasix 40 mg daily, potassium chloride 20 mEq p.o. daily, amiodarone 200 mg p.o. t.i.d., lisinopril 2.5 mg p.o. daily, Protonix 40 mg p.o. daily, Xarelt o 20 mg p.o. daily, Carafate 1 gram p.o. q.i.d., Cardizem-CD 120 mg p.o. daily. CONTRAINDICATIONS: None. CODE STATUS: FULL CODE. INPATIENT CONSULTANTS: Dr. Bradley was consulted while in hospital. TEST RESULTS PENDING ON DISCHARGE: None. ALLERGIES: IODINATED CONTRAST. DISCHARGE PLAN: Post hospital, the patient will follow up with primary care physician in 1 week. Th e patient is instructed to follow up with Dr. Silverio as instructed. HOSPITAL COURSE: A 73-year-old female who has underlying history of paroxysmal atrial fibrillation/S VT who presented to emergency room with a complaint of palpitations. She was found with atrial fibri llation with RVR. She was given Cardizem bolus in the Emergency Room and subsequently she converted to sinus rhythm. The patient was observed on telemetry floor. After that, patient had atrial fibril lation with RVR during night time and Cardizem drip was started. Cardiology saw this patient and the y started Cardizem-CD and they recommended to discharge her home with outpatient followup. Cardizem- CD prescription sent to her pharmacy. The patient is seen and examined at bedside today. Please see my progress note from today for furthe r details.
[2018-08-12] MEDS ORDERED: Amiodarone 200 MG TAB PO SCH (09:00)
[2018-08-19] MEDS ORDERED: Amiodarone 200 MG TAB PO SCH (09:00)
== END 2018-08-06 19:21 | disposition home or self-care (01) ==
LOC: ERS 13:26 → 2SW 14:48
PROVIDERS: ADMIT Internal Medicine; ATTEND Internal Medicine
DX: I48.0 Paroxysmal atrial fibrillation (principal); I42.8 Other cardiomyopathies; I25.10 Atherosclerotic heart disease of native coronary artery without angina pectoris; I13.0 Hypertensive heart and chronic kidney disease with heart failure and stage 1 through stage 4 chronic kidney disease, or unspecified chronic kidney disease; N18.3 Chronic kidney disease, stage 3 (moderate); I50.22 Chronic systolic (congestive) heart failure; K21.9 Gastro-esophageal reflux disease without esophagitis; I08.3 Combined rheumatic disorders of mitral, aortic and tricuspid valves; E78.5 Hyperlipidemia, unspecified; Z91.041 Radiographic dye allergy status; Z79.01 Long term (current) use of anticoagulants; Z79.899 Other long term (current) drug therapy
CPT/HCPCS: 71045; 80048; 80053; 82550; 82553; 84484 ×2; 85025 ×2; 85610; 85730; 93005; 94760; 96365; 96366 ×2; 96375; 96376; 99285; G0378 ×2; 36415; 96374; J1160; J3490; J7050

== ENCOUNTER 2018-08-09 10:51 | Emergency (ER) | payer MEDICARE ==
[2018-08-09] MEDS ORDERED: Midazolam HCl 5 mg/ml Vial ONE (11:21)
[2018-08-09] MEDS ORDERED: Fentanyl 100 MCG/2 ML VIAL ONE (11:21)
[2018-08-09 11:24] LABS: #Basophils 0.1 thou/uL (0.0-0.2); #Eosinphils 0.2 thou/uL (0.0-0.7); #Lymphocytes 1.3 thou/uL (1.20-3.40); #Monocytes 0.5 thou/uL (0.11-0.59); #Neutrophils 2.9 thou/uL (1.40-6.50); %Basophils 1.3 % (0.0-1.0); %Eosinophils 3.1 % (0.0-10.0); %Lymphocytes 26.2 % (21.0-51.0); %Monocytes 9.3 % (0.0-10.0); %Neutrophils 60.1 % (42.0-75.0); Hemoglobin 10.9 g/dL (12.0-16.0); Mean Corpuscular HGB CONC 32.8 g/dL (32.0-36.0); Mean Corpuscular Volume 91.4 fL (78.0-98.0); Mean Platelet Volume 7.1 fL (7.4-10.4); Platelet Count 296 thou/uL (130-400); Red Blood Cell (RBC) Count 3.65 mill/uL (4.20-5.40); White Blood Cell (WBC) Count 4.9 thou/uL (4.8-10.8)
[2018-08-09 11:31] LABS: INR-International Normal Ratio 2.4; PTT 39.2 SEC (22.9-36.1); Prothrombin Time 26.1 SEC (12.0-14.7)
--- NOTE | 2018-08-09 11:48 | RAD ---
AP CHEST: History: Atrial fibrillation. Hypertension. Comparison: 08-05-18 FINDINGS: The lung taveras are clear. No evidence of vascular congestion or edema. Heart size is mildly prominen t but stable. Calcified granuloma in the right midlung again noted. IMPRESSION: No evidence of vascular congestion or edema. Stable chest. POS: [facility]
[2018-08-09 12:00] LABS: ALT (SGPT) 9 U/L (8-55); AST (SGOT) 10 U/L (5-34); Albumin 3.7 g/dL (3.4-4.8); Alkaline Phosphatase 27 U/L (40-150); Anion Gap 9 mmol/L (10-20); BUN (Urea Nitrogen) 23 mg/dL (9.8-20.1); Bilirubin, Total 0.8 mg/dL (0.2-1.2); CK (CPK) 61 U/L (29-168); Calc. Creatinine Clearance 0 mL/min (70-130); Calcium 8.4 mg/dL (7.8-10.44); Carbon Dioxide 27 mmol/L (23-31); Chloride 107 mmol/L (98-107); Estimated GFR-MDRD 53; Globulin 2.4 g/dL (2.4-3.5); Glucose 111 mg/dL (83-110); Potassium 4.4 mmol/L (3.5-5.1); Protein, Total 6.1 g/dL (6.0-8.3); Sodium 139 mmol/L (136-145)
[2018-08-09 12:01] LABS: Troponin I Less than 0.010 ng/mL (< 0.028)
== END 2018-08-09 14:50 | disposition home or self-care (01) ==
LOC: ERS 10:51
DX: I48.91 Unspecified atrial fibrillation (principal); I95.9 Hypotension, unspecified; I25.10 Atherosclerotic heart disease of native coronary artery without angina pectoris; I11.0 Hypertensive heart disease with heart failure; I50.9 Heart failure, unspecified; I47.1 Supraventricular tachycardia; Z79.899 Other long term (current) drug therapy
CPT/HCPCS: 36415; 71045; 80053; 82553; 84484; 85025; 85610; 85730; 93005; J2250; J3010

== ENCOUNTER 2020-12-08 11:12 | Inpatient (IN) | payer MEDICARE ==
[2020-12-08] MEDS ORDERED: Diltiazem 125 MG/25 ML ONE (11:18)
[2020-12-08 11:47] LABS: #Basophils 0.1 thou/uL (0.0-0.2); #Eosinphils 0.1 thou/uL (0.0-0.7); #Lymphocytes 1.8 thou/uL (1.20-3.40); #Monocytes 0.6 thou/uL (0.11-0.59); #Neutrophils 4.5 thou/uL (1.40-6.50); %Basophils 1.2 % (0.0-1.0); %Eosinophils 1.6 % (0.0-10.0); %Lymphocytes 25.5 % (21.0-51.0); %Monocytes 8.1 % (0.0-10.0); %Neutrophils 63.6 % (42.0-75.0); Hemoglobin 10.5 g/dL (12.0-16.0); Mean Corpuscular HGB CONC 31.5 g/dL (32.0-36.0); Mean Corpuscular Hemoglobin 27.7 pg (27.0-31.0); Mean Corpuscular Volume 87.7 fL (78.0-98.0); Mean Platelet Volume 7.4 fL (7.4-10.4); Platelet Count 374 thou/uL (130-400); RBC Distribution Width 12.8 % (11.5-14.5); Red Blood Cell (RBC) Count 3.78 mill/uL (4.20-5.40); White Blood Cell (WBC) Count 7.1 thou/uL (4.8-10.8)
[2020-12-08 12:11] LABS: ALT (SGPT) 69 U/L (8-55); AST (SGOT) 85 U/L (5-34); Albumin 3.9 g/dL (3.4-4.8); Alkaline Phosphatase 47 U/L (40-110); Anion Gap 15 mmol/L (10-20); BUN (Urea Nitrogen) 21 mg/dL (9.8-20.1); Bilirubin, Total 0.8 mg/dL (0.2-1.2); Calc. Creatinine Clearance 0 mL/min (70-130); Calcium 8.7 mg/dL (7.8-10.44); Carbon Dioxide 23 mmol/L (23-31); Chloride 105 mmol/L (98-107); Globulin 3.4 g/dL (2.4-3.5); Glucose 105 mg/dL (83-110); Magnesium 2.4 mg/dL (1.6-2.6); Potassium 5.3 mmol/L (3.5-5.1); Protein, Total 7.3 g/dL (5.8-8.1); Sodium 138 mmol/L (136-145)
[2020-12-08 12:28] LABS: CKMB 1.4 ng/mL (0-6.6)
[2020-12-08] MEDS ORDERED: Enoxaparin Sodium 80 MG/0.8 ML SYRINGE ONE (12:58)
[2020-12-08] MEDS ORDERED: Aspirin Chewable 81 MG TAB ONE (13:07)
[2020-12-08] MEDS ORDERED: Carvedilol 6.25 MG TAB PO SCH (13:15)
[2020-12-08] MEDS ORDERED: Furosemide 40 MG TAB PO PRN (14:19)
[2020-12-08 15:33] LABS: Troponin I 0.046 ng/mL (< 0.028)
[2020-12-08 18:14] VITALS: BMI 27.1
[2020-12-08 18:27] LABS: Troponin I 0.045 ng/mL (< 0.028)
[2020-12-08] MEDS: Rivaroxaban 10 MG TAB PO SCH (18:48)
[2020-12-08] MEDS: Carvedilol 6.25 MG TAB PO SCH (20:28)
[2020-12-08 23:10] LABS: SARS-CoV-2 PCR by NAA Not Detected (NotDetected)
[2020-12-09 04:55] LABS: #Basophils 0.1 thou/uL (0.0-0.2); #Eosinphils 0.2 thou/uL (0.0-0.7); #Lymphocytes 1.8 thou/uL (1.20-3.40); #Monocytes 0.4 thou/uL (0.11-0.59); #Neutrophils 2.2 thou/uL (1.40-6.50); %Basophils 2.2 % (0.0-1.0); %Eosinophils 3.4 % (0.0-10.0); %Lymphocytes 38.4 % (21.0-51.0); %Monocytes 7.7 % (0.0-10.0); %Neutrophils 48.3 % (42.0-75.0); Hemoglobin 9.7 g/dL (12.0-16.0); Mean Corpuscular HGB CONC 33.3 g/dL (32.0-36.0); Mean Corpuscular Hemoglobin 28.9 pg (27.0-31.0); Mean Corpuscular Volume 86.8 fL (78.0-98.0); Mean Platelet Volume 7.1 fL (7.4-10.4); Platelet Count 315 thou/uL (130-400); RBC Distribution Width 12.4 % (11.5-14.5); Red Blood Cell (RBC) Count 3.35 mill/uL (4.20-5.40); White Blood Cell (WBC) Count 4.6 thou/uL (4.8-10.8)
[2020-12-09 05:23] LABS: Anion Gap 11 mmol/L (10-20); BUN (Urea Nitrogen) 17 mg/dL (9.8-20.1); Calc. Creatinine Clearance 64 mL/min (70-130); Calcium 8.4 mg/dL (7.8-10.44); Carbon Dioxide 23 mmol/L (23-31); Chloride 108 mmol/L (98-107); Glucose 95 mg/dL (83-110); Sodium 138 mmol/L (136-145)
[2020-12-09] MEDS ORDERED: Metoprolol Tartrate 5 MG/5 ML VIAL IVP PRN (06:16)
[2020-12-09] MEDS: Carvedilol 6.25 MG TAB PO SCH ×2 (08:42→20:01)
[2020-12-09] MEDS ORDERED: Amiodarone 200 MG TAB PO SCH (09:00)
[2020-12-09] MEDS ORDERED: FLU VACC QS2020-21(65YR UP)/PF 240 MCG/0.7 ML SYRINGE IM ONE (09:00)
[2020-12-09] MEDS: Diltiazem 125 MG in Sodium Chloride 0.9% 100 ML IVPB SCH (11:00)
[2020-12-09] MEDS: Rivaroxaban 10 MG TAB PO SCH (18:39)
[2020-12-09] MEDS: Amiodarone 200 MG TAB PO SCH (20:01)
[2020-12-10] MEDS: Carvedilol 6.25 MG TAB PO SCH ×2 (08:50→19:49)
[2020-12-10] MEDS: Diltiazem 125 MG in Sodium Chloride 0.9% 100 ML IVPB SCH (08:50)
[2020-12-10] MEDS: Amiodarone 200 MG TAB PO SCH ×3 (08:51→19:50)
[2020-12-10] MEDS: Furosemide 40 MG TAB PO SCH (10:00)
[2020-12-10] MEDS: Rivaroxaban 10 MG TAB PO SCH (16:05)
[2020-12-11 05:31] LABS: Anion Gap 12 mmol/L (10-20); BUN (Urea Nitrogen) 13 mg/dL (9.8-20.1); Calc. Creatinine Clearance 56 mL/min (70-130); Calcium 8.5 mg/dL (7.8-10.44); Carbon Dioxide 26 mmol/L (23-31); Chloride 104 mmol/L (98-107); Glucose 100 mg/dL (83-110); Potassium 3.7 mmol/L (3.5-5.1); Sodium 138 mmol/L (136-145)
[2020-12-11] MEDS: Amiodarone 200 MG TAB PO SCH ×3 (07:47→19:23)
[2020-12-11] MEDS: Carvedilol 6.25 MG TAB PO SCH ×2 (07:47→19:23)
[2020-12-11] MEDS: Furosemide 40 MG TAB PO SCH (07:48)
[2020-12-11] MEDS: Senokot 8.6 MG TAB PO SCH ×2 (12:00→19:23)
[2020-12-11] MEDS: Polyethylene Glycol 3350 17 GM Packet PO SCH ×2 (12:01→19:23)
[2020-12-11] MEDS: Rivaroxaban 10 MG TAB PO SCH (15:46)
[2020-12-11] MEDS ORDERED: Diltiazem HCl SR 60 mg Capsule PO SCH (17:45)
[2020-12-11] MEDS ORDERED: Diltiazem 125 MG in Sodium Chloride 0.9% 100 ML IVPB SCH (22:15)
[2020-12-12] MEDS ORDERED: Diltiazem 125 MG in Sodium Chloride 0.9% 100 ML IVPB SCH (00:05)
[2020-12-12 05:31] LABS: Hemoglobin 10.3 g/dL (12.0-16.0); Platelet Count 383 thou/uL (130-400)
[2020-12-12 05:55] LABS: Anion Gap 13 mmol/L (10-20); BUN (Urea Nitrogen) 18 mg/dL (9.8-20.1); Calc. Creatinine Clearance 48 mL/min (70-130); Calcium 8.7 mg/dL (7.8-10.44); Carbon Dioxide 26 mmol/L (23-31); Chloride 102 mmol/L (98-107); Glucose 104 mg/dL (83-110); Potassium 4.3 mmol/L (3.5-5.1); Sodium 137 mmol/L (136-145)
[2020-12-12] MEDS: Polyethylene Glycol 3350 17 GM Packet PO SCH ×2 (09:41→21:50)
[2020-12-12] MEDS: Senokot 8.6 MG TAB PO SCH ×2 (09:41→21:50)
[2020-12-12] MEDS: Furosemide 40 MG TAB PO SCH (09:42)
[2020-12-12] MEDS: Amiodarone 200 MG TAB PO SCH ×2 (09:48→21:49)
[2020-12-12] MEDS: Carvedilol 6.25 MG TAB PO SCH ×2 (11:10→21:49)
[2020-12-12] MEDS: Rivaroxaban 10 MG TAB PO SCH (18:15)
[2020-12-13 05:16] LABS: Anion Gap 14 mmol/L (10-20); BUN (Urea Nitrogen) 19 mg/dL (9.8-20.1); Calc. Creatinine Clearance 49 mL/min (70-130); Calcium 8.6 mg/dL (7.8-10.44); Carbon Dioxide 22 mmol/L (23-31); Chloride 105 mmol/L (98-107); Glucose 104 mg/dL (83-110); Potassium 5.3 mmol/L (3.5-5.1); Sodium 136 mmol/L (136-145)
[2020-12-13] MEDS: Furosemide 40 MG TAB PO SCH (08:48)
[2020-12-13] MEDS: Carvedilol 6.25 MG TAB PO SCH ×2 (08:48→20:43)
[2020-12-13] MEDS: Polyethylene Glycol 3350 17 GM Packet PO SCH ×2 (08:49→20:45)
[2020-12-13] MEDS: Senokot 8.6 MG TAB PO SCH ×2 (08:49→20:45)
[2020-12-13] MEDS: Amiodarone 200 MG TAB PO SCH ×2 (08:49→20:44)
[2020-12-13] MEDS: Digoxin 0.125 MG TAB PO SCH (08:49)
[2020-12-13] MEDS: Rivaroxaban 10 MG TAB PO SCH (16:55)
[2020-12-13] MEDS ORDERED: Acetaminophen 325 MG TAB PO PRN (17:03)
[2020-12-13] MEDS ORDERED: Digoxin 0.5 MG/2 ML AMP SLOW IVP PRN (21:15)
[2020-12-14] MEDS: Diltiazem HCl 125 MG, Admixture Fee 1 EACH in Sodium Chloride 0.9% 100 ML IVPB SCH (02:26)
[2020-12-14 05:15] LABS: Anion Gap 13 mmol/L (10-20); BUN (Urea Nitrogen) 22 mg/dL (9.8-20.1); Calc. Creatinine Clearance 44 mL/min (70-130); Calcium 8.7 mg/dL (7.8-10.44); Carbon Dioxide 28 mmol/L (23-31); Chloride 102 mmol/L (98-107); Glucose 105 mg/dL (83-110); Potassium 4.3 mmol/L (3.5-5.1); Sodium 139 mmol/L (136-145)
[2020-12-14] MEDS: Senokot 8.6 MG TAB PO SCH ×2 (07:32→21:01)
[2020-12-14] MEDS: Amiodarone 200 MG TAB PO SCH ×2 (07:32→21:01)
[2020-12-14] MEDS: Digoxin 0.125 MG TAB PO SCH (07:33)
[2020-12-14] MEDS: Carvedilol 6.25 MG TAB PO SCH ×2 (07:33→21:01)
[2020-12-14] MEDS: Furosemide 40 MG TAB PO SCH (07:34)
[2020-12-14] MEDS: Polyethylene Glycol 3350 17 GM Packet PO SCH ×3 (07:34→21:03)
[2020-12-14] MEDS: Rivaroxaban 10 MG TAB PO SCH (17:10)
[2020-12-15 04:38] LABS: Hemoglobin 10.4 g/dL (12.0-16.0); Platelet Count 402 thou/uL (130-400)
[2020-12-15 04:53] LABS: Anion Gap 16 mmol/L (10-20); BUN (Urea Nitrogen) 30 mg/dL (9.8-20.1); Calc. Creatinine Clearance 38 mL/min (70-130); Calcium 8.7 mg/dL (7.8-10.44); Carbon Dioxide 23 mmol/L (23-31); Chloride 102 mmol/L (98-107); Glucose 108 mg/dL (83-110); Potassium 4.6 mmol/L (3.5-5.1); Sodium 136 mmol/L (136-145)
[2020-12-15] MEDS: Diltiazem HCl 125 MG, Admixture Fee 1 EACH in Sodium Chloride 0.9% 100 ML IVPB SCH (06:25)
[2020-12-15] MEDS: Amiodarone 200 MG TAB PO SCH ×2 (09:16→20:33)
[2020-12-15] MEDS: Carvedilol 6.25 MG TAB PO SCH ×2 (09:16→20:34)
[2020-12-15] MEDS: Digoxin 0.125 MG TAB PO SCH (09:17)
[2020-12-15] MEDS: Furosemide 40 MG TAB PO SCH (09:18)
[2020-12-15] MEDS: Polyethylene Glycol 3350 17 GM Packet PO SCH ×2 (09:18→20:34)
[2020-12-15] MEDS: Senokot 8.6 MG TAB PO SCH ×2 (09:19→20:34)
[2020-12-15] MEDS: Rivaroxaban 15 MG TAB PO SCH (16:56)
[2020-12-16] MEDS: Amiodarone 200 MG TAB PO SCH ×2 (07:52→21:13)
[2020-12-16] MEDS: Carvedilol 6.25 MG TAB PO SCH ×2 (07:52→21:13)
[2020-12-16] MEDS: Digoxin 0.125 MG TAB PO SCH (07:53)
[2020-12-16] MEDS: Polyethylene Glycol 3350 17 GM Packet PO SCH ×2 (07:54→21:14)
[2020-12-16] MEDS: Furosemide 40 MG TAB PO SCH (07:54)
[2020-12-16] MEDS: Senokot 8.6 MG TAB PO SCH ×2 (07:54→21:14)
[2020-12-16] MEDS: Rivaroxaban 15 MG TAB PO SCH (17:05)
[2020-12-17 04:38] LABS: #Basophils 0.1 thou/uL (0.0-0.2); #Eosinphils 0.4 thou/uL (0.0-0.7); #Lymphocytes 1.9 thou/uL (1.20-3.40); #Monocytes 0.6 thou/uL (0.11-0.59); #Neutrophils 3.2 thou/uL (1.40-6.50); %Basophils 0.8 % (0.0-1.0); %Eosinophils 6.9 % (0.0-10.0); %Neutrophils 52.3 % (42.0-75.0); Hemoglobin 10.6 g/dL (12.0-16.0); Mean Corpuscular HGB CONC 32.6 g/dL (32.0-36.0); Mean Corpuscular Volume 85.9 fL (78.0-98.0); Mean Platelet Volume 6.9 fL (7.4-10.4); Platelet Count 396 thou/uL (130-400); RBC Distribution Width 12.3 % (11.5-14.5); Red Blood Cell (RBC) Count 3.78 mill/uL (4.20-5.40); White Blood Cell (WBC) Count 6.1 thou/uL (4.8-10.8)
[2020-12-17 04:58] LABS: Anion Gap 13 mmol/L (10-20); BUN (Urea Nitrogen) 35 mg/dL (9.8-20.1); Calc. Creatinine Clearance 45 mL/min (70-130); Calcium 8.5 mg/dL (7.8-10.44); Carbon Dioxide 28 mmol/L (23-31); Chloride 101 mmol/L (98-107); Glucose 104 mg/dL (83-110); Potassium 4.1 mmol/L (3.5-5.1); Sodium 138 mmol/L (136-145)
[2020-12-17] MEDS: Furosemide 40 MG TAB PO SCH (08:18)
[2020-12-17] MEDS: Carvedilol 6.25 MG TAB PO SCH ×2 (08:18→21:28)
[2020-12-17] MEDS: Digoxin 0.125 MG TAB PO SCH (08:19)
[2020-12-17] MEDS: Senokot 8.6 MG TAB PO SCH ×2 (08:27→21:29)
[2020-12-17] MEDS: Polyethylene Glycol 3350 17 GM Packet PO SCH ×2 (08:27→21:29)
[2020-12-17] MEDS ORDERED: PROPOFOL 20 ML ONE (16:05)
[2020-12-17] MEDS: Rivaroxaban 15 MG TAB PO SCH (17:42)
[2020-12-17] MEDS: Amiodarone 200 MG TAB PO SCH (21:29)
[2020-12-18] MEDS: Furosemide 40 MG TAB PO SCH (08:15)
[2020-12-18] MEDS: Polyethylene Glycol 3350 17 GM Packet PO SCH (08:16)
[2020-12-18] MEDS: Senokot 8.6 MG TAB PO SCH (08:16)
[2020-12-18] MEDS: Carvedilol 6.25 MG TAB PO SCH ×2 (08:53→09:55)
[2020-12-18] MEDS ORDERED: Carvedilol 6.25 MG TAB PO SCH ×2 (10:00→21:00)
[2020-12-18] MEDS: Amiodarone 200 MG TAB PO SCH (10:04)
[2020-12-18 12:19] VITALS: BP 143/95; TEMP 98.5
== END 2020-12-18 15:33 | disposition home or self-care (01) | DRG 308 ==
LOC: ERS 11:12 → ERHOLD 13:48 → 2SW 17:37 → 2NO 12-14 18:02
PROVIDERS: ADMIT Internal Medicine; ATTEND Internal Medicine
PROC: B24BZZ4 Ultrasonography of Heart with Aorta, Transesophageal (ICD-10-PCS; principal; 2020-12-17)
PROC: 5A2204Z Restoration of Cardiac Rhythm, Single (ICD-10-PCS; 2020-12-17)
DX: I48.19 Other persistent atrial fibrillation (principal); I50.23 Acute on chronic systolic (congestive) heart failure; I13.0 Hypertensive heart and chronic kidney disease with heart failure and stage 1 through stage 4 chronic kidney disease, or unspecified chronic kidney disease; I48.4 Atypical atrial flutter; I25.10 Atherosclerotic heart disease of native coronary artery without angina pectoris; K21.9 Gastro-esophageal reflux disease without esophagitis; N18.30 Chronic kidney disease, stage 3 unspecified; I42.8 Other cardiomyopathies; E78.5 Hyperlipidemia, unspecified; I48.0 Paroxysmal atrial fibrillation; I08.3 Combined rheumatic disorders of mitral, aortic and tricuspid valves; I45.81 Long QT syndrome; D64.9 Anemia, unspecified; Z90.710 Acquired absence of both cervix and uterus; Z91.041 Radiographic dye allergy status; Z87.891 Personal history of nicotine dependence
CPT/HCPCS: 36415; 36416; 71045; 80048; 80053; 82553; 83735; 83880; 84484; 85014; 85018; 85025; 85049; 87635; 92960; 93005; 93010; 93306; 93312; 96365; 96366; 96372; J1160; J1650; J2704; J3490; U0003; U0005

== ENCOUNTER 2021-02-22 13:52 | Inpatient (IN) | payer MEDICARE ==
[2021-02-22] MEDS ORDERED: Metoprolol Tartrate 5 MG/5 ML VIAL ONE ×2 (14:12→14:51)
[2021-02-22 14:27] LABS: #Basophils 0.1 thou/uL (0.0-0.2); #Eosinphils 0.2 thou/uL (0.0-0.7); #Lymphocytes 1.3 thou/uL (1.20-3.40); #Monocytes 0.6 thou/uL (0.11-0.59); #Neutrophils 5.9 thou/uL (1.40-6.50); %Basophils 0.7 % (0.0-1.0); %Eosinophils 1.9 % (0.0-10.0); %Lymphocytes 16.3 % (21.0-51.0); %Neutrophils 74.2 % (42.0-75.0); Hemoglobin 10.6 g/dL (12.0-16.0); Mean Corpuscular HGB CONC 32.9 g/dL (32.0-36.0); Mean Corpuscular Hemoglobin 28.3 pg (27.0-31.0); Mean Corpuscular Volume 85.9 fL (78.0-98.0); Mean Platelet Volume 7.5 fL (7.4-10.4); Platelet Count 342 thou/uL (130-400); RBC Distribution Width 13.9 % (11.5-14.5); Red Blood Cell (RBC) Count 3.74 mill/uL (4.20-5.40)
[2021-02-22 14:48] LABS: ALT (SGPT) 39 U/L (8-55); AST (SGOT) 35 U/L (5-34); Albumin 4.2 g/dL (3.4-4.8); Alkaline Phosphatase 46 U/L (40-110); Anion Gap 17 mmol/L (10-20); BUN (Urea Nitrogen) 21 mg/dL (9.8-20.1); Bilirubin, Total 0.8 mg/dL (0.2-1.2); Calc. Creatinine Clearance 0 mL/min (70-130); Calcium 9.2 mg/dL (7.8-10.44); Carbon Dioxide 22 mmol/L (23-31); Chloride 106 mmol/L (98-107); Glucose 105 mg/dL (83-110); Potassium 4.6 mmol/L (3.5-5.1); Protein, Total 7.2 g/dL (5.8-8.1); Sodium 140 mmol/L (136-145)
[2021-02-22] MEDS ORDERED: Diltiazem 125 MG/25 ML ONE (15:18)
[2021-02-22] MEDS ORDERED: Furosemide 40 MG/4 ML VIAL ONE (16:03)
[2021-02-22] MEDS ORDERED: Nitroglycerin 2% Ointment 1 INCH/1 GM Packet ONE (16:04)
[2021-02-22] MEDS ORDERED: Amiodarone 200 MG TAB PO SCH (18:15)
[2021-02-22 18:24] LABS: Troponin I 0.011 ng/mL (< 0.028)
[2021-02-22 18:30] VITALS: BMI 27.3
[2021-02-22 18:41] LABS: SARS-CoV-2 NAA Rapid Test Not Detected (NotDetected)
[2021-02-22] MEDS: Carvedilol 6.25 MG TAB PO SCH (19:49)
[2021-02-22] MEDS ORDERED: Digoxin 0.5 MG/2 ML AMP SLOW IVP SCH (20:15)
[2021-02-22] MEDS ORDERED: Digoxin 0.5 MG/2 ML AMP ONE (20:18)
[2021-02-22] MEDS ORDERED: Acetaminophen 325 MG TAB ONE (20:18)
[2021-02-22] MEDS: Acetaminophen 325 MG TAB PO PRN (20:24)
[2021-02-22 20:28] LABS: Bilirubin Negative (Negative); Blood, Urine Negative (Negative); Glucose, Urine (Dipstick) Negative (Negative); Ketone, Urine Negative (Negative); Leukocyte Trace (Negative); Nitrite Negative (Negative); Protein, Urine (Dipstick) Negative (Neg-Trace); RBC/HPF 0-3 HPF (0-3); Squamous Epithelial 0-3 HPF (0-3); Urobilinogen 0.2 mg/dL (Less than 2); WBC/HPF 0-3 HPF (0-3); pH, Urine 5.5 (5.0-9.0)
[2021-02-22 20:35] LABS: Bacteria/HPF 3+ HPF (None Seen); Clarity Clear (Clear)
[2021-02-22 20:53] LABS: Troponin I 0.016 ng/mL (< 0.028)
[2021-02-23] MEDS ORDERED: Diltiazem 125 MG/25 ML ONE (03:46)
[2021-02-23 04:30] LABS: #Basophils 0.1 thou/uL (0.0-0.2); #Eosinphils 0.2 thou/uL (0.0-0.7); #Lymphocytes 1.7 thou/uL (1.20-3.40); #Monocytes 0.5 thou/uL (0.11-0.59); #Neutrophils 2.9 thou/uL (1.40-6.50); %Basophils 1.1 % (0.0-1.0); %Eosinophils 3.7 % (0.0-10.0); %Lymphocytes 31.8 % (21.0-51.0); %Monocytes 8.6 % (0.0-10.0); %Neutrophils 54.8 % (42.0-75.0); Hemoglobin 9.6 g/dL (12.0-16.0); Mean Corpuscular Hemoglobin 28.3 pg (27.0-31.0); Mean Corpuscular Volume 85.6 fL (78.0-98.0); Mean Platelet Volume 7.6 fL (7.4-10.4); Platelet Count 282 thou/uL (130-400); RBC Distribution Width 13.6 % (11.5-14.5); White Blood Cell (WBC) Count 5.3 thou/uL (4.8-10.8)
[2021-02-23 04:48] LABS: Anion Gap 13 mmol/L (10-20); BUN (Urea Nitrogen) 18 mg/dL (9.8-20.1); Calc. Creatinine Clearance 57 mL/min (70-130); Calcium 8.3 mg/dL (7.8-10.44); Carbon Dioxide 22 mmol/L (23-31); Chloride 105 mmol/L (98-107); Glucose 85 mg/dL (83-110); Magnesium 2.2 mg/dL (1.6-2.6); Potassium 3.7 mmol/L (3.5-5.1); Sodium 136 mmol/L (136-145)
[2021-02-23] MEDS ORDERED: Amiodarone 200 MG TAB PO SCH (09:00)
[2021-02-23 09:40] LABS: Troponin I 0.014 ng/mL (< 0.028)
[2021-02-23] MEDS: Lisinopril 10 MG TAB PO SCH (10:07)
[2021-02-23] MEDS: Carvedilol 6.25 MG TAB PO SCH ×2 (10:08→20:31)
[2021-02-23] MEDS: Acetaminophen 325 MG TAB PO PRN (12:40)
[2021-02-23] MEDS: Rivaroxaban 10 MG TAB PO SCH (12:40)
[2021-02-24] MEDS: Diltiazem HCl 125 MG, Admixture Fee 1 EACH in Sodium Chloride 0.9% 100 ML IVPB SCH ×2 (00:23→21:18)
[2021-02-24] MEDS: Carvedilol 6.25 MG TAB PO SCH ×2 (08:47→20:16)
[2021-02-24] MEDS: Lisinopril 10 MG TAB PO SCH (12:50)
[2021-02-24] MEDS: Rivaroxaban 10 MG TAB PO SCH (12:51)
[2021-02-24] MEDS ORDERED: Acetaminophen 500 MG TAB PO SCH (19:30)
[2021-02-24] MEDS ORDERED: Digoxin 0.25 MG TAB PO SCH (19:45)
[2021-02-25 03:32] LABS: Platelet Count 325 thou/uL (130-400)
[2021-02-25 03:55] LABS: Anion Gap 10 mmol/L (10-20); BUN (Urea Nitrogen) 12 mg/dL (9.8-20.1); Calc. Creatinine Clearance 65 mL/min (70-130); Calcium 8.6 mg/dL (7.8-10.44); Carbon Dioxide 23 mmol/L (23-31); Chloride 108 mmol/L (98-107); Glucose 95 mg/dL (83-110); Magnesium 2.3 mg/dL (1.6-2.6); Potassium 3.8 mmol/L (3.5-5.1); Sodium 137 mmol/L (136-145)
[2021-02-25] MEDS: Diltiazem HCl 125 MG, Admixture Fee 1 EACH in Sodium Chloride 0.9% 100 ML IVPB SCH ×2 (05:39→23:39)
[2021-02-25] MEDS: Digoxin 0.25 MG TAB PO SCH ×2 (08:16→16:34)
[2021-02-25] MEDS: Lisinopril 10 MG TAB PO SCH (08:16)
[2021-02-25] MEDS: Carvedilol 6.25 MG TAB PO SCH ×2 (08:16→18:40)
[2021-02-25] MEDS ORDERED: Midazolam HCl 2 mg/2 ml Vial ONE ×2 (14:37→14:49)
[2021-02-25] MEDS ORDERED: Fentanyl 100 MCG/2 ML VIAL ONE (14:38)
[2021-02-25] MEDS ORDERED: Lidocaine 1% (PF) 30 ML VIAL ONE ×2 (14:38→14:43)
[2021-02-25] MEDS ORDERED: CEFAZOLIN 1 GM VIAL ONE (14:38)
[2021-02-25] MEDS ORDERED: Gentamicin 80 MG/2 ML VIAL ONE (14:38)
[2021-02-25] MEDS ORDERED: Dexamethasone 4 mg/ml Vial ONE (15:04)
[2021-02-25] MEDS ORDERED: diphenhydrAMINE 50 MG/ML VIAL ONE (15:04)
[2021-02-25] MEDS ORDERED: Famotidine/PF 20 mg/2ml Vial ONE (15:04)
[2021-02-25] MEDS ORDERED: Hydrocortisone Sod Succ/PF 100 mg/2 ml Vial ONE (15:07)
[2021-02-25] MEDS ORDERED: Rivaroxaban 10 MG TAB PO SCH (18:00)
[2021-02-25] MEDS: Amiodarone 200 MG TAB PO SCH (20:12)
[2021-02-26 03:47] LABS: Anion Gap 12 mmol/L (10-20); BUN (Urea Nitrogen) 16 mg/dL (9.8-20.1); Calc. Creatinine Clearance 62 mL/min (70-130); Calcium 8.2 mg/dL (7.8-10.44); Carbon Dioxide 21 mmol/L (23-31); Chloride 105 mmol/L (98-107); Glucose 105 mg/dL (83-110); Potassium 4.2 mmol/L (3.5-5.1); Sodium 134 mmol/L (136-145)
[2021-02-26] MEDS: Carvedilol 6.25 MG TAB PO SCH ×2 (08:28→19:47)
[2021-02-26] MEDS: Lisinopril 10 MG TAB PO SCH (08:28)
[2021-02-26] MEDS: Digoxin 0.25 MG TAB PO SCH (08:28)
[2021-02-26] MEDS: Amiodarone 200 MG TAB PO SCH ×3 (08:28→19:47)
[2021-02-26] MEDS: Rivaroxaban 10 MG TAB PO SCH (09:04)
[2021-02-26] MEDS: Diltiazem HCl 125 MG, Admixture Fee 1 EACH in Sodium Chloride 0.9% 100 ML IVPB SCH (17:08)
[2021-02-26] MEDS ORDERED: Digoxin 0.5 MG/2 ML AMP SLOW IVP SCH (19:45)
[2021-02-26] MEDS: cefTRIAXone\\ROCEPHIN 1 GM in Sodium Chloride 0.9% 100 ML IVPB SCH (22:23)
[2021-02-26] MEDS: Acetaminophen 325 MG TAB PO PRN (22:24)
[2021-02-27] MEDS: Diltiazem HCl 125 MG, Admixture Fee 1 EACH in Sodium Chloride 0.9% 100 ML IVPB SCH (03:55)
[2021-02-27] MEDS: Carvedilol 6.25 MG TAB PO SCH ×2 (06:09→20:43)
[2021-02-27] MEDS: Digoxin 0.25 MG TAB PO SCH (07:35)
[2021-02-27] MEDS: Amiodarone 200 MG TAB PO SCH ×2 (07:35→17:00)
[2021-02-27] MEDS: Lisinopril 10 MG TAB PO SCH (07:35)
[2021-02-27] MEDS: Rivaroxaban 10 MG TAB PO SCH (07:36)
[2021-02-27] MEDS ORDERED: Lidocaine 1% (PF) 30 ML VIAL ONE (09:59)
[2021-02-27] MEDS ORDERED: Heparin 10,000 UNITS/ 10 ML VIAL ONE (10:08)
[2021-02-27] MEDS ORDERED: Midazolam HCl 2 mg/2 ml Vial ONE (11:15)
[2021-02-27] MEDS ORDERED: Fentanyl 100 MCG/2 ML VIAL ONE ×2 (11:15→13:42)
[2021-02-27] MEDS ORDERED: Hydrocortisone Sod Succ/PF 100 mg/2 ml Vial ONE (11:29)
[2021-02-27] MEDS ORDERED: diphenhydrAMINE 50 MG/ML VIAL ONE (11:29)
[2021-02-27] MEDS ORDERED: Gentamicin 80 MG/2 ML VIAL ONE (11:29)
[2021-02-27] MEDS ORDERED: CEFAZOLIN 1 GM VIAL ONE (11:29)
[2021-02-27] MEDS ORDERED: Lidocaine 1% w/Epinephrine 1:100K 20 ML VIAL ONE (12:28)
[2021-02-27] MEDS ORDERED: DOPamine 400 MG/D5W 250 ML 250 ML ONE (13:28)
[2021-02-27] MEDS ORDERED: Acetaminophen/Codeine 30-300mg Tablet PO PRN (17:30)
[2021-02-27] MEDS: Acetaminophen 325 MG TAB PO PRN (20:43)
[2021-02-27] MEDS: cefTRIAXone\\ROCEPHIN 1 GM in Sodium Chloride 0.9% 100 ML IVPB SCH (20:45)
[2021-02-28] MEDS: Carvedilol 6.25 MG TAB PO SCH ×2 (07:43→19:51)
[2021-02-28] MEDS: Lisinopril 10 MG TAB PO SCH (07:43)
[2021-02-28] MEDS: Rivaroxaban 10 MG TAB PO SCH (07:43)
[2021-02-28] MEDS: Acetaminophen/Codeine 30-300mg Tablet PO PRN ×2 (15:30→19:54)
[2021-02-28 19:51] VITALS: BP 130/53
[2021-02-28] MEDS: cefTRIAXone\\ROCEPHIN 1 GM in Sodium Chloride 0.9% 100 ML IVPB SCH (21:07)
[2021-03-01 03:41] LABS: #Basophils 0.1 thou/uL (0.0-0.2); #Eosinphils 0.3 thou/uL (0.0-0.7); #Monocytes 0.6 thou/uL (0.11-0.59); #Neutrophils 3.3 thou/uL (1.40-6.50); %Basophils 1.1 % (0.0-1.0); %Eosinophils 4.9 % (0.0-10.0); %Lymphocytes 31.1 % (21.0-51.0); %Monocytes 10.1 % (0.0-10.0); %Neutrophils 52.8 % (42.0-75.0); Hemoglobin 9.3 g/dL (12.0-16.0); Mean Corpuscular Hemoglobin 28.4 pg (27.0-31.0); Mean Platelet Volume 6.7 fL (7.4-10.4); Platelet Count 337 thou/uL (130-400); RBC Distribution Width 13.4 % (11.5-14.5); Red Blood Cell (RBC) Count 3.28 mill/uL (4.20-5.40); White Blood Cell (WBC) Count 6.3 thou/uL (4.8-10.8)
[2021-03-01 03:59] LABS: Anion Gap 11 mmol/L (10-20); BUN (Urea Nitrogen) 16 mg/dL (9.8-20.1); Calc. Creatinine Clearance 61 mL/min (70-130); Calcium 8.6 mg/dL (7.8-10.44); Carbon Dioxide 27 mmol/L (23-31); Chloride 104 mmol/L (98-107); Glucose 95 mg/dL (83-110); Potassium 4.1 mmol/L (3.5-5.1); Sodium 138 mmol/L (136-145)
[2021-03-01] MEDS: Acetaminophen/Codeine 30-300mg Tablet PO PRN (06:31)
[2021-03-01] MEDS: Rivaroxaban 10 MG TAB PO SCH (08:27)
[2021-03-01] MEDS: Lisinopril 10 MG TAB PO SCH (08:27)
[2021-03-01] MEDS: Carvedilol 6.25 MG TAB PO SCH (08:27)
[2021-03-01] MEDS: Acetaminophen 325 MG TAB PO PRN (08:35)
[2021-03-01 11:27] VITALS: TEMP 97.5
== END 2021-03-01 13:45 | disposition home or self-care (01) | DRG 227 ==
LOC: ERS 13:52 → ERHOLD 17:35 → IMCU/EMU 02-23 07:05
PROVIDERS: ADMIT Internal Medicine; ATTEND Internal Medicine
PROC: 0JH608Z Insertion of Defibrillator Generator into Chest Subcutaneous Tissue and Fascia, Open Approach (ICD-10-PCS; principal; 2021-02-27)
PROC: 02HL3KZ Insertion of Defibrillator Lead into Left Ventricle, Percutaneous Approach (ICD-10-PCS; 2021-02-27)
PROC: 02HK3KZ Insertion of Defibrillator Lead into Right Ventricle, Percutaneous Approach (ICD-10-PCS; 2021-02-27)
PROC: 02H63KZ Insertion of Defibrillator Lead into Right Atrium, Percutaneous Approach (ICD-10-PCS; 2021-02-27)
PROC: 02583ZZ Destruction of Conduction Mechanism, Percutaneous Approach (ICD-10-PCS; 2021-02-27)
PROC: 02K83ZZ Map Conduction Mechanism, Percutaneous Approach (ICD-10-PCS; 2021-02-27)
DX: I48.0 Paroxysmal atrial fibrillation (principal); I13.0 Hypertensive heart and chronic kidney disease with heart failure and stage 1 through stage 4 chronic kidney disease, or unspecified chronic kidney disease; I50.22 Chronic systolic (congestive) heart failure; Z20.822 Contact with and (suspected) exposure to COVID-19; N17.9 Acute kidney failure, unspecified; N30.00 Acute cystitis without hematuria; K21.9 Gastro-esophageal reflux disease without esophagitis; I25.10 Atherosclerotic heart disease of native coronary artery without angina pectoris; I42.8 Other cardiomyopathies; E78.5 Hyperlipidemia, unspecified; N18.30 Chronic kidney disease, stage 3 unspecified; I07.1 Rheumatic tricuspid insufficiency; J44.9 Chronic obstructive pulmonary disease, unspecified; I48.4 Atypical atrial flutter; B96.20 Unspecified Escherichia coli [E. coli] as the cause of diseases classified elsewhere; Z91.14 Patient's other noncompliance with medication regimen; Z90.710 Acquired absence of both cervix and uterus; Z87.891 Personal history of nicotine dependence; Z91.041 Radiographic dye allergy status; Z79.01 Long term (current) use of anticoagulants; Z79.899 Other long term (current) drug therapy
CPT/HCPCS: 33225; 33249; 36415; 71045; 76942; 80048; 80053; 81001; 83735; 83880; 84443; 84484; 85014; 85018; 85025; 85049; 85379; 87077; 87086; 87186; 93005; 93010; 93306; 93623; 93650; 94760; 96365; 96366; 96375; 96376; 99152; 99153; C1777; C1882; C1898; C1900; C2630; J0690; J0696; J1100; J1160; J1200; J1265; J1580; J1644; J1720; J1940; J2001; J2250; J3010; J3490; S0028; U0002; U0005

== ENCOUNTER 2021-05-27 09:52 | Outpatient (CLI) | payer MEDICARE ==
[2021-05-27 11:24] LABS: Hemoglobin 9.9 g/dL (12.0-15.5); Mean Corpuscular HGB CONC 29.6 g/dL (32.0-36.0); Mean Corpuscular Volume 80.9 fl (81.6-98.3); Mean Platelet Volume 9.8 fl (7.4-10.4); Platelet Count 400 10x3/uL (150-450); RBC Distribution Width 15.9 % (11.5-14.5); Red Blood Cell (RBC) Count 4.13 10x6/uL (3.90-5.03); White Blood Cell (WBC) Count 6.3 10x3/uL (3.5-10.5)
[2021-05-27 11:54] LABS: Anion Gap 16 mmol/L (10-20); BUN (Urea Nitrogen) 21 mg/dL (9.8-20.1); Calc. Creatinine Clearance 0 mL/min (70-130); Calcium 9.7 mg/dL (7.8-10.44); Carbon Dioxide 23 mmol/L (23-31); Chloride 106 mmol/L (98-107); Glucose 100 mg/dL (83-110); Potassium 4.1 mmol/L (3.5-5.1); Sodium 141 mmol/L (136-145)
[2021-05-27 11:56] LABS: INR-International Normal Ratio 1.1; PTT 23.9 sec (22.0-33.0); Prothrombin Time 11.9 sec (9.5-12.1)
[2021-05-27 19:04] LABS: SARS-CoV-2 PCR by NAA Not Detected (NotDetected)
== END 2021-05-27 09:53 | disposition home or self-care (01) ==
LOC: LABBT 09:52
PROVIDERS: ATTEND Internal Medicine Cardiovascular Disease
DX: Z01.812 Encounter for preprocedural laboratory examination (principal); Z20.822 Contact with and (suspected) exposure to COVID-19
CPT/HCPCS: 80048; 85027; 85610; 85730; U0003; U0005

== ENCOUNTER 2021-06-01 10:24 | Observation (INO) | payer MEDICARE ==
[2021-05-29 10:35] VITALS: BMI 25.7
[2021-06-01] MEDS ORDERED: Iopamidol 370 76% 50 ML VIAL FS ONE (11:02)
[2021-06-01] MEDS ORDERED: Sodium Chloride 0.9% 10 ML ONE (11:04)
[2021-06-01] MEDS ORDERED: Lidocaine 1% (PF) 30 ML VIAL ONE ×3 (12:59→13:13)
[2021-06-01] MEDS ORDERED: Vancomycin HCl 500 MG VIAL ONE (13:00)
[2021-06-01] MEDS ORDERED: Clindamycin/D5W 600 mg/50 ml Premix Bag ONE (13:00)
[2021-06-01] MEDS ORDERED: diphenhydrAMINE 50 MG/ML VIAL ONE (13:12)
[2021-06-01] MEDS ORDERED: Clindamycin/D5W 900 mg/50 ml Premix Bag ONE (13:13)
[2021-06-01] MEDS ORDERED: Famotidine/PF 20 mg/2ml Vial ONE (13:13)
[2021-06-01] MEDS ORDERED: Gentamicin 80 MG/2 ML VIAL ONE (13:13)
[2021-06-01] MEDS ORDERED: Levofloxacin 500 mg/D5W 100 ml Premix Bag ONE (13:20)
[2021-06-01] MEDS ORDERED: methylPREDNISolone Sod Succ/PF 125 MG/2 ML VIAL ONE (13:30)
[2021-06-01] MEDS ORDERED: Fentanyl 100 MCG/2 ML VIAL ONE (14:08)
[2021-06-01] MEDS ORDERED: PROPOFOL 200 MG/20 ML VIAL ONE (14:35)
[2021-06-01] MEDS ORDERED: PHENYLEPHRINE-NS 100 MCG/ML 10 ML SYRINGE ONE (14:35)
[2021-06-01] MEDS ORDERED: Dexamethasone 20 MG/5 ML VIAL ONE (14:35)
[2021-06-01] MEDS ORDERED: Ondansetron PF 4 MG/2 ML Vial ONE (14:35)
[2021-06-01] MEDS ORDERED: Lidocaine 1% PF 5 ML VIAL ONE (14:35)
[2021-06-01] MEDS ORDERED: Non-Formulary Medication 1 EACH PO PRN (19:35)
[2021-06-01] MEDS ORDERED: HYDROcodone/Acetaminophen 5/325 mg Tablet PO PRN ×2 (19:45)
[2021-06-01] MEDS ORDERED: Promethazine HCl 25 MG/ML VIAL IM/IV PRN (19:45)
[2021-06-01] MEDS ORDERED: Morphine Sulfate 2 MG/ML SYRINGE SLOW IVP PRN (19:45)
[2021-06-01] MEDS ORDERED: Ondansetron HCl/PF 4 MG/2 ML Vial IVP PRN (19:45)
[2021-06-01] MEDS: Clindamycin 150 MG CAP PO SCH (21:37)
[2021-06-02] MEDS: Clindamycin 150 MG CAP PO SCH (05:56)
[2021-06-02 08:16] VITALS: BP 161/92; TEMP 97.5
== END 2021-06-02 13:38 | disposition home or self-care (01) ==
LOC: CCL 10:24 → 3SE 17:28
PROVIDERS: ADMIT Internal Medicine Cardiovascular Disease; ATTEND Internal Medicine Cardiovascular Disease
PROC: 02PA3MZ Removal of Cardiac Lead from Heart, Percutaneous Approach (ICD-10-PCS; principal; 2021-06-01)
PROC: 02HK0JZ Insertion of Pacemaker Lead into Right Ventricle, Open Approach (ICD-10-PCS; 2021-06-01)
DX: T82.897A Other specified complication of cardiac prosthetic devices, implants and grafts, initial encounter (principal); I11.0 Hypertensive heart disease with heart failure; I50.42 Chronic combined systolic (congestive) and diastolic (congestive) heart failure; I42.8 Other cardiomyopathies; I48.0 Paroxysmal atrial fibrillation; I97.190 Other postprocedural cardiac functional disturbances following cardiac surgery; I44.2 Atrioventricular block, complete; J44.9 Chronic obstructive pulmonary disease, unspecified; I95.1 Orthostatic hypotension; J98.11 Atelectasis; K21.9 Gastro-esophageal reflux disease without esophagitis; Z87.891 Personal history of nicotine dependence; Z79.01 Long term (current) use of anticoagulants; Z79.899 Other long term (current) drug therapy; Z88.0 Allergy status to penicillin; Z91.041 Radiographic dye allergy status; Z95.810 Presence of automatic (implantable) cardiac defibrillator
CPT/HCPCS: 33224; 33234; 71045; 93005; C1763; C1900; G0378 ×2; 36005; 75820; 76942; 93010; J1100; J1200; J1580; J1956; J2001; J2405; J2704; J2930; J3010; J3370; J3490; Q9967; S0028